=== PATIENT | female | born 1930 | race Caucasian/White ===

== ENCOUNTER 2019-09-10 10:01 | Inpatient (IN) | payer MEDICARE, OTHER ==
[~2019-09-10] VITALS: Ht 160 cm; Wt 50.0 kg
[2019-09-10] MEDS ORDERED: ESCI5SOL3 PO (10:23)
[2019-09-10] MEDS ORDERED: BIMA01SOL OU (10:23)
[2019-09-10] MEDS ORDERED: LOSA100T50 PO (10:23)
[2019-09-10] MEDS ORDERED: FURO20TA2 PO (10:23)
[2019-09-10] MEDS ORDERED: PROP60TA14 PO (10:23)
[2019-09-10] MEDS ORDERED: AZOP0.2S OU (10:23)
--- NOTE | 2019-09-10 11:48 | REP ---
Clinical: Trauma. Fall. Technique: AP, lateral, bilateral oblique views of the right hand. Findings: There is a transverse minimally displaced fracture through the fifth metacarpal shaft with overlying soft tissue swelling. Generalized age-related osteopenia and moderate osteoarthritic degenerative changes are noted. Impression: Transverse fracture through the fifth metacarpal shaft. Electronically Signed by Sha Leroy MD 09/10/2019 11:39 A
--- NOTE | 2019-09-10 11:51 | REP ---
Clinical: Trauma. Technique: Two views of the right hip. Findings: Nondisplaced fracture of the right superior pubic ramus and likely a nondisplaced fracture of the right inferior pubic ramus noted. Visualized portions of the right proximal femur are intact. Impression: Nondisplaced date pubic ramus fracture(s). Electronically Signed by Sha Leroy MD 09/10/2019 11:42 A
--- NOTE | 2019-09-10 11:53 | REP ---
Clinical: Trauma. Bruising. Technique: AP, lateral, bilateral oblique views of the right elbow. Findings: Age-related osteopenia and degenerative changes are appreciated. Findings include spurring and osteophyte formation along the proximal radius/ulna. Findings less likely represent acute fracture. No effusion. No significant swelling. Impression: Age-related osteopenia and degenerative changes. Bulky osteophyte in the region of the proximal anterior ulna presumed (less likely representing an acute fracture fragment. Electronically Signed by Sha Leroy MD 09/10/2019 11:44 A
[2019-09-10] MEDS ORDERED: PROP60CA PO (15:00)
[2019-09-10] MEDS ORDERED: LEXA5TAB13 PO (15:00)
--- NOTE | 2019-09-10 15:30 | REP ---
Clinical: Pain. Fall. Technique: Axial noncontrast images through the pelvis with coronal and sagittal re-formations. Findings: Nondisplaced fracture involving the right superior pubic ramus and inferior pubic ramus are identified with mild adjacent muscular contusion to the adductor musculature adjacent to the right inferior pubic ramus. No obvious significant hematoma. Remainder of the osseous structures demonstrate age-related osteopenia and degenerative changes without further obvious acute fracture. Intrapelvic structures appear intact. The bladder and age-appropriate uterus/adnexa noted. Diffuse colonic and sigmoid diverticulosis identified. No pelvic free fluid or hematoma. Impression: Nondisplaced fractures involving the right superior and inferior pubic rami with subtle intramuscular contusion involving the adductor musculature adjacent to the right inferior pubic ramus. Electronically Signed by Sha Leroy MD 09/10/2019 03:21 P
--- NOTE | 2019-09-10 16:05 | HPEPDOC ---
General Date of Admission 09/10/2019 Date of Service: Sep 10, 2019 Chief Complaint The patient is a 89-year-old female admitted with a reason for visit of Fall. Source: Patient, Old records Exam Limitations: Dementia Associated Symptoms: Denies Symptoms History of Present Illness Ms. Fitzpatrick is seen in [facility] ED following a fall x 8 days prior. She is a poor historian due to dementia and her caregivers have already left. Pt reported she was heading to the communal room at her apt complex when she 'must have turned too quickly', possibly slipped and fell. She denied any head trauma or loss of consciousness. She stated she was helped off the floor and managed to continue with her day. Pt stated she never felt pain and in fact, never even needed OTC medication for pain following her fall. She was noted to have some swelling over the R elbow and hand and appeared to be walking with a limp and was brought to the ED for assessment. Pt denied having any pain in the ED. Home Medications Scheduled Bimatoprost (Lumigan) 0.01% 2.5ML Drops, 1 DROP OU QHS, (Reported) Brinzolamide (Azopt) 1% 10ML Drops.susp, 1 DROP OU BID, (Reported) Escitalopram Oxalate (Lexapro) 5 Mg Tablet, 5 MG PO DAILY, (Reported) Furosemide (Furosemide) 20 Mg Tablet, 20 MG PO DAILY, (Reported) Losartan Potassium (Losartan Potassium) 100 Mg Tablet, 100 MG PO DAILY, (Reported) Propranolol HCl (Propranolol HCl ER) 60 Mg Cap.sa.24h, 60 MG PO QHS, (Reported) Allergies Coded Allergies: Aminoglycosides (Verified Allergy, Intermediate, RASH, 09/10/19) rash bacitracin (Verified Allergy, Intermediate, RASH, 09/10/19) neomycin (Verified Allergy, Intermediate, RASH, 09/10/19) polymyxin B (Verified Allergy, Intermediate, RASH, 09/10/19) Penicillins (Verified Adverse Reaction, Mild, GI UPSET, 09/10/19) clavulanic acid (Verified Adverse Reaction, Mild, GI UPSET, 09/10/19) Past Medical History Medical History HTN, Osteoporosis Cataract Surgical History Retinal re-attachment Family History Significant Family History: Noncontributory Social History * Smoker: Denies Alcohol: Denies Drugs: denies Psychosocial History: Anxiety A-FIB/CHADSVASC A-FIB History Current/History of A-Fib/PAF?: No Current PO Anticoag Therapy: No Review of Systems Constitutional: Denies: Chills, Fever, Night Sweats Eyes: Denies: Pain ENT: Denies: Head Aches Skin: Denies: Rash Pulmonary: Denies: Dyspnea, Cough Cardiovascular: Denies: Chest Pain, Palpitations, Orthopnea, Lt Headedness Gastrointestinal: Reports: Diarrhea; Denies: Nausea, Vomiting, Abdominal Pain Genitourinary: Denies: Dysuria Hematologic: Denies: Bruising Musculoskeletal: Denies: Neck Pain, Back Pain, Joint Pain, Muscle Pain, Spasms Neurological: Denies: Weakness, Numbness, Change in speech, Confusion Psych: Reports: Mood Normal; Denies: Depression, Memory Issues Physical Examination General Exam: Positive: Alert, Cooperative, No Acute Distress Eye Exam: Positive: Conjunctiva & lids normal ENT Exam: Positive: Atraumatic Neck Exam: Positive: Supple; Negative: thyromegaly Chest Exam: Positive: Clear to auscultation, Normal air movement Heart Exam: Positive: Rate Normal, Normal S1, Normal S2; Negative: Murmurs, Rubs Abdomen Exam: Positive: Normal bowel sounds, Soft; Negative: Tenderness, Hepatospenomegaly Extremity Exam: Positive: Other (arthritic changes b/l hands ); Negative: Clubbing, Cyanosis, Edema, Swelling Skin Exam: Negative: Nl turgor and temperature Neuro Exam: Positive: Normal Speech (AO to person and place ) Psych Exam: Positive: Mood NL, Anxiety Vital Signs Vital Signs Date Time Temp Pulse Resp B/P (MAP) Pulse Ox O2 Delivery O2 Flow Rate FiO2 09/10/19 12:05 96.3 64 18 187/86 (119) 99 Room Air Assessment/Plan Ms. Fitzpatrick is seen in [facility] ED following a fall x 8 days prior. She is a poor historian due to dementia and her caregivers have already left. Pt has a PMHx of HTN, Anxiety, Osteoporosis, Cataracts. Pt reported she was heading to the communal room at her apt complex when she 'must have turned too quickly', possibly slipped and fell. She denied any head trauma or loss of consciousness. She stated she was helped off the floor and managed to continue with her day. Pt stated she never felt pain and in fact, never took even OTC medication for pain following her fall. She was noted to have some swelling over the R elbow and hand and appeared to be walking with a limp and was brought to the ED for assessment. CT Pelvis w/out contrast Impression: "Nondisplaced fractures involving the right superior and inferior pubic rami with subtle intramuscular contusion involving the adductor musculature adjacent to the right inferior pubic ramus." X-Ray Right elbow Impression: "Age-related osteopenia and degenerative changes. Bulky osteophyte in the region of the proximal anterior ulna presumed (less likely representing an acute fracture fragment." X-Ray Right hand Impression: "Transverse fracture through the fifth metacarpal shaft." X-Ray Right hip Impression: "Nondisplaced date pubic ramus fracture(s)." 1. Non-displaced fracture right superior and inferior pubic rami 2. Transverse fracture through the fifth metacarpal shaft - Ortho consulted (Dr. Wilkins). Admission recommended with PT/OT assessment - consider ARU prior to d/c 3. HTN - continue home medications - pt denied missing any doses of her medications; reportedly has white coat HTN. 4. Cataracts - continue home medications 5. Anxiety - continue home medication Plan / VTE VTE Prophylaxis Ordered?: Yes Plan Diet: Continue Current Therapy: PT, OT THO PAUL PA-C Sep 10, 2019 16:05
[2019-09-10] MEDS ORDERED: ACETAMINOPHEN TAB 650MG DOSE (2X325MG) PO PRN (16:15)
[2019-09-10] MEDS ORDERED: traMADol 50 MG TAB PO PRN (18:15)
[2019-09-10] MEDS ORDERED: PILL CUTTER 1 EACH XX PRN (18:30)
[2019-09-10 20:28] LABS: BASO # 0.1 10^3/uL (0.0-0.2); BASO % 0.7 % (0.0-1.0); EOS # 0.1 10^3/uL (0.0-0.5); EOS % 1.2 % (0.0-3.0); HEMATOCRIT 31.3 % (36.0-47.0); HEMOGLOBIN 10.1 g/dl (12.0-15.5); LYMPH # 1.1 10^3/uL (1.5-5.0); LYMPH % 16.7 % (24.0-44.0); MEAN CORPUSCULAR HEMOGLOBIN 29.1 pg (27.0-33.0); MEAN CORPUSCULAR HGB CONC 32.3 g/dl (32.0-36.5); MEAN CORPUSCULAR VOLUME 90.2 fl (80.0-96.0); MONO # 0.6 10^3/uL (0.0-0.8); MONO % 9.5 % (0.0-5.0); NEUTROPHILS # 4.9 10^3/uL (1.5-8.5); NEUTROPHILS % 71.6 % (36.0-66.0); PLATELET COUNT, AUTOMATED 307 10^3/uL (150-450); RED BLOOD COUNT 3.47 10^6/uL (4.00-5.40); WHITE BLOOD COUNT 6.8 10^3/uL (4.0-10.0)
[2019-09-10 20:45] VITALS: BP 174/77
[2019-09-10 20:49] LABS: CREATININE FOR GFR 1.05 MG/DL (0.55-1.30); GLOMERULAR FILTRATION RATE 52.8 (>32)
[2019-09-10] MEDS: **hydrALAZINE HCL** 25 MG TAB PO SCH (21:03)
[2019-09-10] MEDS: BRINZOLAMIDE 1 % OPHTH SUSP (AZOPT) 10ML OU SCH (22:41)
[2019-09-10] MEDS: PROPRANOLOL 60 MG LA CAP PO SCH (22:41)
[2019-09-10] MEDS: ACETAMINOPHEN 500 MG TAB PO SCH (22:42)
[2019-09-11] MEDS: **hydrALAZINE HCL** 25 MG TAB PO SCH ×3 (06:00→21:28)
[2019-09-11 06:19] VITALS: BP 155/77
[2019-09-11 07:23] LABS: BASO # 0.1 10^3/uL (0.0-0.2); BASO % 1.1 % (0.0-1.0); EOS # 0.1 10^3/uL (0.0-0.5); EOS % 1.3 % (0.0-3.0); HEMATOCRIT 30.7 % (36.0-47.0); HEMOGLOBIN 10.3 g/dl (12.0-15.5); LYMPH # 0.9 10^3/uL (1.5-5.0); LYMPH % 16.8 % (24.0-44.0); MEAN CORPUSCULAR HEMOGLOBIN 29.9 pg (27.0-33.0); MEAN CORPUSCULAR HGB CONC 33.6 g/dl (32.0-36.5); MONO # 0.5 10^3/uL (0.0-0.8); NEUTROPHILS # 3.8 10^3/uL (1.5-8.5); NEUTROPHILS % 71.6 % (36.0-66.0); PLATELET COUNT, AUTOMATED 314 10^3/uL (150-450); RED BLOOD COUNT 3.45 10^6/uL (4.00-5.40); WHITE BLOOD COUNT 5.4 10^3/uL (4.0-10.0)
[2019-09-11 07:40] LABS: BLOOD UREA NITROGEN 21 MG/DL (7-18); CARBON DIOXIDE LEVEL 26 MEQ/L (21-32); CHLORIDE LEVEL 101 MEQ/L (98-107); CREATININE FOR GFR 0.91 MG/DL (0.55-1.30); GLOMERULAR FILTRATION RATE > 60.0 (>32); GLUCOSE, FASTING 104 MG/DL (70-100); POTASSIUM SERUM 3.9 MEQ/L (3.5-5.1); SODIUM LEVEL 136 MEQ/L (136-145)
[2019-09-11] MEDS: ENOXAPARIN 30 MG/0.3 ML SYR (J1650) SC SCH (09:37)
[2019-09-11] MEDS: LOSARTAN 50 MG TAB PO SCH (09:37)
[2019-09-11] MEDS: ESCITALOPRAM OXALATE 5MG TABLET (LEXAPRO) PO SCH (09:38)
[2019-09-11] MEDS: FUROSEMIDE 20 MG TAB PO SCH (09:39)
[2019-09-11] MEDS: ACETAMINOPHEN 500 MG TAB PO SCH ×2 (09:39→21:24)
[2019-09-11] MEDS: BRINZOLAMIDE 1 % OPHTH SUSP (AZOPT) 10ML OU SCH ×2 (09:39→21:25)
--- NOTE | 2019-09-11 10:35 | CR ---
DATE OF CONSULTATION: 09/11/2019 CHIEF COMPLAINT: Right pubic rami fracture and right fifth metacarpal fracture. HISTORY OF PRESENT ILLNESS: This 89-year-old female was seen today on the [facility]. Per the notes in the computer and the nursing staff on the [facility], it looks like Dr. Wilkins was made aware last evening of this patient. There is no note and as such I have gone ahead and assessed her myself. The patient is a poor historian. According to the notes from the physician wardrobe assistant (PERRY), Sheila Ureña, this woman had a fall eight days prior. She has dementia. Caregivers are not present at the time of that history nor when I saw her this morning at around 07:00 a.m. She had turned to quickly in her apartment complex, possibly slipped and fell. She denied chest pain, headache, shortness of breath or other symptoms. PAST MEDICAL HISTORY: Includes: Hypertension, osteoporosis, and cataracts. HOME MEDICATIONS: Include: Bimatoprost, brinzolamide, escitalopram oxalate, furosemide, losartan, propranolol. ALLERGIES: AMINOGLYCOSIDES, BACITRACIN, NEOMYCIN, POLYMYXIN, PENCILLIN, CLAVULANIC ACID. SOCIAL HISTORY: Denies smoking, alcohol or drug use. VITAL SIGNS: This morning, temperature 98.0, blood pressure 155/77, pulse rate 60, respiratory rate 18, 97% on room air. She is alert and converses somewhat appropriately but definitely has confusion. In terms of the right upper extremity, there is a splint immobilizing the wrist and metacarpals. I removed this. There is no obvious skin tear. There is mild bruising and swelling overlying the right fifth metacarpal, pain there but nowhere else in the fingers, hand or wrist. No crossing of or scissoring the digits. Normal sensation of the hand. The hand is warm and well-perfused. There is a strong radial pulse. No pain at the elbow. Elbow has full range of motion. No pain overlying the clavicles or entire left upper extremity or shoulders. Abdomen is soft. Pelvis has some mild pain to the right side but no obvious bruising or swelling. No pain to the long bone of the lower extremities. Feet are warm and well-perfused and with good pedal pulses. She is able to wiggle her toes, dorsiflex and plantar flex her feet. Radiographs reviewed, right elbow negative aside from chronic changes. Right hand x-rays were obtained. This shows a fifth metacarpal fracture. It appears well-aligned and minimally displaced. This is just proximal to the neck of the fifth metacarpal. It is a transverse fracture. CT scan the abdomen was reviewed. This shows a right superior and inferior pubic rami fracture. These were both minimally displaced. The femoral necks appear normal with no obvious fracture. No other abnormalities noted on the pelvic CT. Laboratory examination reveals a hemoglobin of 10.3. ASSESSMENT AND PLAN: For the fifth metacarpal fracture, we will treat that nonoperatively in a splint for three weeks, start immediate finger range of motion. Ideally, she will followup in the clinic to place more of a robust splint but for now, she is in appropriate splinted position. For the superior and inferior pubic rami fractures, this is weightbearing as tolerated. She should be mobilized as tolerated. From her medical management standpoint, she will be managed by the hospitalist team. From disposition, we will have Mara sue nurse practitioner aide in that aspect of her care. For venous thromboembolism (VTE) prophylaxis, she has been placed on Lovenox 30 mg subcutaneously once a day. I will follow her while she is in the hospital.
--- NOTE | 2019-09-11 11:37 | IPNPDOC ---
Subjective Date Seen The patient was seen on 09/11/19. Subjective Chief Complaint/HPI Ms. Fitzpatrick is seen in [facility] ED following a fall x 8 days prior. She is a poor historian due to apparent dementia. Pt reported she is doing fine this morning. She continues to deny pain. Reported that another doctor looked at her arm this morning, removed the bandages and thought she was doing fine. She was a little anxious last night and is again this morning - snow falling from the roof concerned her last night and this morning, she is anxious to receive her anxiolytic medication. Reported she previously took Propanolol Rx by her PCP but that was stopped years ago. Now takes a new medication, but cannot recall what it is; she knows this medication is effective for her. General: Reports: Normal Appetite; Denies: Chills, Night Sweats, Fatigue, Malaise Constitutional: Denies: Chills, Fever, Night Sweats Eyes: Denies: Pain ENT: Denies: Head Aches Skin: Denies: Rash Pulmonary: Denies: Dyspnea, Cough Cardiovascular: Denies: Chest Pain, Palpitations, Orthopnea, Lt Headedness Gastrointestinal: Denies: Abdominal Pain Genitourinary: Denies: Dysuria, Frequency Musculoskeletal: Denies: Neck Pain, Back Pain, Arm Pain, Hand Pain, Leg Pain, Foot Pain, Joint Pain, Muscle Pain, Spasms Neurological: Denies: Change in speech Psych: Reports: Anxiety Objective Physical Examination General Exam: Positive: Alert, Cooperative, No Acute Distress Eye Exam: Positive: Conjunctiva & lids normal ENT Exam: Positive: Atraumatic Neck Exam: Positive: Supple; Negative: thyromegaly Chest Exam: Positive: Clear to auscultation, Normal air movement Heart Exam: Positive: Rate Normal, Normal S1, Normal S2; Negative: Murmurs, Rubs Abdomen Exam: Positive: Normal bowel sounds, Soft; Negative: Tenderness, Hepatospenomegaly Extremity Exam: Positive: Other (arthritic changes b/l hands; kyphosis ); Negative: Clubbing, Cyanosis, Edema, Swelling Skin Exam: Negative: Nl turgor and temperature Neuro Exam: Positive: Normal Speech (AO to person and place ) Psych Exam: Positive: Anxiety Assessment /Plan Assessment Ms. Fitzpatrick is seen in [facility] ED following a fall x 8 days prior. She has a PMH of dementia, hypertension, anxiety. She is a poor historian due to dementia and her caregivers have already left. Pt reported she was heading to the communal room at her apt complex when she 'must have turned too quickly', possibly slipped and fell. She denied any head trauma or loss of consciousness. She stated she was helped off the floor and managed to continue with her day. Pt stated she never felt pain and in fact, never took even OTC medication for pain following her fall. She was noted to have some swelling over the R elbow and hand and appeared to be walking with a limp and was brought to the ED for assessment. CT Pelvis w/out contrast Impression: "Nondisplaced fractures involving the right superior and inferior pubic rami with subtle intramuscular contusion involving the adductor musculature adjacent to the right inferior pubic ramus." X-Ray Right elbow Impression: "Age-related osteopenia and degenerative changes. Bulky osteophyte in the region of the proximal anterior ulna presumed (less likely representing an acute fracture fragment." X-Ray Right hand Impression: "Transverse fracture through the fifth metacarpal shaft." X-Ray Right hip Impression: "Nondisplaced date pubic ramus fracture(s)." 1. Non-displaced fracture right superior and inferior pubic rami 2. Transverse fracture through the fifth metacarpal shaft - Ortho consulted. Admission recommended with PT/OT assessment - Seen by Dr. Rueda who will follow the pt while she is hospital - consider ARU prior to d/c - uses a walker at baseline - pain control with tylenol and tramadol prn if needed. 3. HTN - continue home medications - pt denied missing any doses of her medications; reportedly has white coat HTN. - on losartan and propranolol and lasix 4. Cataracts - continue home medications 5. Anxiety - continue home medications escitalopram 6. Dementia - watch for acute hospitalization induced delirium Plan/VTE VTE Prophylaxis Ordered?: Yes (Lovenox ) VS, I&O, 24H, Fishbone Vital Signs/I&O Vital Signs Date Time Temp Pulse Resp B/P (MAP) Pulse Ox O2 Delivery O2 Flow Rate FiO2 09/11/19 06:19 98.0 60 18 155/77 (103) 97 Room Air I&O- Last 24 Hours up to 6 AM 09/11/19 06:00 Intake Total 320 ml Output Total 0 ml Balance 320 ml Laboratory Data 24H LABS Laboratory Tests 2 09/10/19 20:09: Immature Granulocyte % (Auto) 0.3, Neutrophils (%) (Auto) 71.6H, Lymphocytes (%) (Auto) 16.7L, Monocytes (%) (Auto) 9.5H, Eosinophils (%) (Auto) 1.2, Basophils (%) (Auto) 0.7, Neutrophils # (Auto) 4.9, Lymphocytes # (Auto) 1.1L, Monocytes # (Auto) 0.6, Eosinophils # (Auto) 0.1, Basophils # (Auto) 0.1, Nucleated Red Blood Cells % (auto) 0.0, Anion Gap 12, Glomerular Filtration Rate 52.8, Calcium Level 9.0 09/11/19 06:49: Anion Gap 9, Glomerular Filtration Rate > 60.0, Calcium Level 9.0 09/11/19 06:50: Immature Granulocyte % (Auto) 0.2, Neutrophils (%) (Auto) 71.6H, Lymphocytes (%) (Auto) 16.8L, Monocytes (%) (Auto) 9.0H, Eosinophils (%) (Auto) 1.3, Basophils (%) (Auto) 1.1H, Neutrophils # (Auto) 3.8, Lymphocytes # (Auto) 0.9L, Monocytes # (Auto) 0.5, Eosinophils # (Auto) 0.1, Basophils # (Auto) 0.1, Nucleated Red Blood Cells % (auto) 0.0 CBC/BMP Laboratory Tests 09/10/19 20:09 09/11/19 06:49 09/11/19 06:50 THO PAUL PA-C Sep 11, 2019 11:37 JU PEÑA MD Sep 11, 2019 16:37
[2019-09-11 14:00] VITALS: BP 146/70
--- NOTE | 2019-09-11 15:11 | CR ---
DATE OF CONSULTATION: 09/10/2019 CHIEF COMPLAINT: Right hand and right pelvic pain. The patient presents today after having a fall about 8 days prior. She is a poor historian due to dementia and caregivers are not currently present at the time of the interview. She has reported some hand pain that is sharp in nature is about a 5 to 6/10 that is made worsen with lifting, gripping or pushing and alleviated only with rest, immobilization and pain medication. She also complains of right-sided pelvic pain that is made worse with ambulation and standing, improved by rest and pain medication. She reports that she fell at her apartment complex. Denies any other pain elsewhere. Denies any numbness, tingling, fevers, chills, nausea or vomiting or loss of consciousness. Complete 10 system review is significant for positives and negatives in the history of present illness. All other systems negative. HOME MEDICATIONS: - bimatoprost - brinzolamide - citalopram - furosemide - losartan - propranolol. ALLERGIES: AMINOGLYCOSIDES, BACITRACIN, NEOMYCIN, POLYMYXIN B, PENICILLIN, CLAVULANIC ACID. PAST MEDICAL HISTORY: 1. Hypertension. 2. Osteoporosis. 3. Cataracts. SOCIAL HISTORY: Denies smoking, alcohol and drugs. PHYSICAL EXAMINATION: The patient is awake and alert, well-dressed,, appropriate affect. Breathing unlabored on room air. Normocephalic, atraumatic. Bilateral upper extremities: No tenderness to palpation. Full active range of motion of the left shoulder, elbows and left wrist. Does have potential pinch nerve of the right hand with mild swelling. Skin intact. Radial pulses 2+, regular rate. Sensation intact to light touch to superficial sensory banch, radial nerve, median and ulnar nerve. Positive anterior interosseous nerve (AIN) and posterior interosseous nerve (PIN) and ulnar nerve function. Bilateral lower extremities: No tenderness to palpation about the knee, ankles or feet. No tenderness to palpation about the left hip. Tenderness to palpation of the right groin. Pain with right hip log roll, hip flexion, otherwise bilateral lower extremity positive EHL, patella, tibial and gastroc motor function, sural, saphenous, superficial, perineal, deep perineal. Sensation intact to light touch. Posterior tibial 2+, regular rate. Skin is intact. IMAGING: CT pelvis, x-rays of the right hand, elbow and hip reviewed demonstrating superior and inferior right-sided pubic rami fractures minimally displaced along with a minimally displaced right metacarpal neck fracture. DIAGNOSIS: 1. Right metacarpal neck fracture and right-sided superior and inferior pubic rami fracture. I discussed with the patient and emergency department (ED) providers who will relay to the medicine team that the patient can be weight bearing as tolerated for her pelvis. There is no indicated orthopedic intervention at this time. In regards to her right hand, we placed her into an ulnar gutter splint. She can weight bear through the splint if need be for ambulation. However, in order to decrease her pain with ambulation with the walker, I do recommend an elbow support for her walker and that way she can weight bear through to her elbow. Otherwise, she can followup in our office in approximately one to two weeks. No limitations otherwise. Appreciate medicine admission and care.
[2019-09-11] MEDS: PROPRANOLOL 60 MG LA CAP PO SCH (21:21)
[2019-09-11 22:00] VITALS: BP 148/71
[2019-09-12] MEDS: **hydrALAZINE HCL** 25 MG TAB PO SCH ×3 (05:12→21:23)
[2019-09-12 06:00] VITALS: BP 143/68
[2019-09-12 06:37] LABS: BASO # 0.1 10^3/uL (0.0-0.2); BASO % 0.7 % (0.0-1.0); EOS # 0.1 10^3/uL (0.0-0.5); HEMATOCRIT 32.1 % (36.0-47.0); HEMOGLOBIN 10.6 g/dl (12.0-15.5); LYMPH # 1.3 10^3/uL (1.5-5.0); LYMPH % 15.5 % (24.0-44.0); MEAN CORPUSCULAR HEMOGLOBIN 29.1 pg (27.0-33.0); MEAN CORPUSCULAR VOLUME 88.2 fl (80.0-96.0); MONO # 0.8 10^3/uL (0.0-0.8); MONO % 9.6 % (0.0-5.0); NEUTROPHILS % 72.8 % (36.0-66.0); PLATELET COUNT, AUTOMATED 356 10^3/uL (150-450); RED BLOOD COUNT 3.64 10^6/uL (4.00-5.40); WHITE BLOOD COUNT 8.2 10^3/uL (4.0-10.0)
[2019-09-12 06:52] LABS: CALCIUM LEVEL 9.1 MG/DL (8.8-10.2); CREATININE FOR GFR 1.08 MG/DL (0.55-1.30); GLOMERULAR FILTRATION RATE 51.1 (>32); POTASSIUM SERUM 4.2 MEQ/L (3.5-5.1)
[2019-09-12] MEDS: ESCITALOPRAM OXALATE 5MG TABLET (LEXAPRO) PO SCH (08:31)
[2019-09-12] MEDS: LOSARTAN 50 MG TAB PO SCH (08:32)
[2019-09-12] MEDS: FUROSEMIDE 20 MG TAB PO SCH (08:34)
[2019-09-12] MEDS: ENOXAPARIN 30 MG/0.3 ML SYR (J1650) SC SCH (08:34)
[2019-09-12] MEDS: ACETAMINOPHEN 500 MG TAB PO SCH ×2 (08:34→19:48)
[2019-09-12] MEDS: BRINZOLAMIDE 1 % OPHTH SUSP (AZOPT) 10ML OU SCH ×2 (08:36→19:48)
--- NOTE | 2019-09-12 10:33 | IPNPDOC ---
Subjective Date Seen The patient was seen on 09/12/19. Subjective Chief Complaint/HPI Ms. Fitzpatrick was admitted from the [facility] ED following a fall x 8 days prior. Pt reported she had no pain following her fall; however staff at the [facility] noticed her limping while walking. She was transported to the ED for assessment. She is a poor historian due to apparent dementia. She is very confused this morning and asking after family members who saying she hasn't seen them in a while. She continues to deny any pain in the right wrist, hips, low back or legs. General: Reports: Normal Appetite Constitutional: Denies: Chills, Fever Eyes: Denies: Pain ENT: Denies: Head Aches Pulmonary: Denies: Dyspnea, Cough Cardiovascular: Denies: Chest Pain, Palpitations, Lt Headedness Gastrointestinal: Denies: Abdominal Pain Musculoskeletal: Denies: Back Pain, Hand Pain, Leg Pain, Joint Pain, Muscle Pain Psych: Reports: Anxiety Objective Physical Examination General Exam: Positive: Alert, Cooperative, No Acute Distress Eye Exam: Positive: Conjunctiva & lids normal ENT Exam: Positive: Atraumatic Neck Exam: Positive: Supple; Negative: thyromegaly Chest Exam: Positive: Clear to auscultation, Normal air movement Heart Exam: Positive: Rate Normal, Normal S1, Normal S2; Negative: Murmurs, Rubs Abdomen Exam: Positive: Normal bowel sounds, Soft; Negative: Tenderness, Hepatospenomegaly Extremity Exam: Positive: Other (arthritic changes b/l hands; kyphosis ); Negative: Clubbing, Cyanosis, Edema, Swelling Skin Exam: Negative: Nl turgor and temperature Neuro Exam: Positive: Normal Speech Psych Exam: Positive: Anxiety, Oriented x 3 (disoriented to time and place ) Assessment /Plan Assessment Ms. Fitzpatrick is seen in [facility] ED following a fall x 8 days prior. She has a PMH of dementia, hypertension, anxiety. She is a poor historian due to dementia and her caregivers have already left. Pt reported she was heading to the communal room at her [facility] complex when she 'must have turned too quickly', possibly slipped and fell. She denied any head trauma or loss of consciousness. She stated she was helped off the floor and managed to continue with her day. Pt stated she never felt pain and in fact, never took even OTC medication for pain following her fall. She was noted to have some swelling over the R elbow and hand and appeared to be walking with a limp and was brought to the ED for assessment. CT Pelvis w/out contrast Impression: "Nondisplaced fractures involving the right superior and inferior pubic rami with subtle intramuscular contusion involving the adductor musculature adjacent to the right inferior pubic ramus." X-Ray Right elbow Impression: "Age-related osteopenia and degenerative changes. Bulky osteophyte in the region of the proximal anterior ulna presumed (less likely representing an acute fracture fragment." X-Ray Right hand Impression: "Transverse fracture through the fifth metacarpal shaft." X-Ray Right hip Impression: "Nondisplaced date pubic ramus fracture(s)." 1. Non-displaced fracture right superior and inferior pubic rami 2. Transverse fracture through the fifth metacarpal shaft - Ortho consulted. Admission recommended with PT/OT assessment - Seen by Dr. Rueda who will follow the pt while she is hospital - consider ARU prior to d/c - uses a walker at baseline - pain control with tylenol and tramadol prn if needed. 3. HTN - continue home medications - pt denied missing any doses of her medications; reportedly has white coat HTN. - on losartan and propranolol and lasix 4. Cataracts - continue home medications 5. Anxiety - continue Escitalopram. 6. Dementia - showing signs of increased confusion today. No aggression. Plan/VTE VTE Prophylaxis Ordered?: Yes (Lovenox ) VS, I&O, 24H, Fishbone Vital Signs/I&O Vital Signs Date Time Temp Pulse Resp B/P (MAP) Pulse Ox O2 Delivery O2 Flow Rate FiO2 09/12/19 08:32 140/72 09/12/19 06:00 98.0 72 18 99 Room Air I&O- Last 24 Hours up to 6 AM 09/12/19 06:00 Intake Total 1110 ml Balance 1110 ml Laboratory Data 24H LABS Laboratory Tests 2 09/12/19 05:53: Immature Granulocyte % (Auto) 0.4, Neutrophils (%) (Auto) 72.8H, Lymphocytes (%) (Auto) 15.5L, Monocytes (%) (Auto) 9.6H, Eosinophils (%) (Auto) 1.0, Basophils (%) (Auto) 0.7, Neutrophils # (Auto) 6.0, Lymphocytes # (Auto) 1.3L, Monocytes # (Auto) 0.8, Eosinophils # (Auto) 0.1, Basophils # (Auto) 0.1, Nucleated Red Blood Cells % (auto) 0.0, Anion Gap 9, Glomerular Filtration Rate 51.1, Calcium Level 9.1 CBC/BMP Laboratory Tests 09/12/19 05:53 THO PAUL PA-C Sep 12, 2019 10:33
[2019-09-12] MEDS: haloperidoL 1 MG TAB PO SCH ×2 (13:54→19:48)
[2019-09-12 14:00] VITALS: BP 151/63
[2019-09-12 19:45] VITALS: BP 148/66
[2019-09-12] MEDS: PROPRANOLOL 60 MG LA CAP PO SCH (19:48)
[2019-09-13 05:13] LABS: BASO # 0.1 10^3/uL (0.0-0.2); BASO % 0.9 % (0.0-1.0); EOS # 0.1 10^3/uL (0.0-0.5); EOS % 1.8 % (0.0-3.0); HEMATOCRIT 31.5 % (36.0-47.0); LYMPH # 1.2 10^3/uL (1.5-5.0); LYMPH % 17.8 % (24.0-44.0); MEAN CORPUSCULAR HEMOGLOBIN 28.9 pg (27.0-33.0); MEAN CORPUSCULAR HGB CONC 31.7 g/dl (32.0-36.5); MONO # 0.8 10^3/uL (0.0-0.8); MONO % 11.9 % (0.0-5.0); NEUTROPHILS # 4.5 10^3/uL (1.5-8.5); NEUTROPHILS % 67.3 % (36.0-66.0); PLATELET COUNT, AUTOMATED 308 10^3/uL (150-450); RED BLOOD COUNT 3.46 10^6/uL (4.00-5.40); WHITE BLOOD COUNT 6.6 10^3/uL (4.0-10.0)
[2019-09-13 05:34] LABS: CALCIUM LEVEL 8.6 MG/DL (8.8-10.2); CREATININE FOR GFR 0.94 MG/DL (0.55-1.30); POTASSIUM SERUM 3.9 MEQ/L (3.5-5.1)
[2019-09-13] MEDS: **hydrALAZINE HCL** 25 MG TAB PO SCH ×2 (06:00→13:41)
[2019-09-13 06:43] VITALS: BP 134/69
[2019-09-13] MEDS: ENOXAPARIN 30 MG/0.3 ML SYR (J1650) SC SCH (09:41)
[2019-09-13] MEDS: FUROSEMIDE 20 MG TAB PO SCH (09:42)
[2019-09-13] MEDS: ACETAMINOPHEN 500 MG TAB PO SCH (09:42)
[2019-09-13] MEDS: LOSARTAN 50 MG TAB PO SCH (09:42)
[2019-09-13] MEDS: ESCITALOPRAM OXALATE 5MG TABLET (LEXAPRO) PO SCH (09:42)
[2019-09-13] MEDS: BRINZOLAMIDE 1 % OPHTH SUSP (AZOPT) 10ML OU SCH (09:43)
[2019-09-13] MEDS: haloperidoL 1 MG TAB PO SCH (09:43)
[2019-09-13] MEDS ORDERED: TRAM50TA2 PO (10:06)
[2019-09-13] MEDS ORDERED: HALO1TA PO (10:06)
--- NOTE | 2019-09-13 10:08 | DS.PDOC ---
Discharge Summary General Date of Admission Sep 10, 2019 at 18:13 Date of Discharge 09/13/19 Discharge Summary PROCEDURES PERFORMED DURING STAY: [None]. ADMITTING DIAGNOSES: 1. Fall 2. Non-displaced fracture right superior and inferior pubic rami 3. Fracture, 5th metacarpal, right hand 4. HTN 5. Cataracts 6. Anxiety DISCHARGE DIAGNOSES: 1. Fall 2. Non-displaced fracture right superior and inferior pubic rami 3. Fracture, 5th metacarpal, right hand 4. HTN 5. Cataracts 6. Anxiety COMPLICATIONS/CHIEF COMPLAINT: Fx 5TH Metacarpal Right Hand,Fx Superior Pubic El[place]. HISTORY OF PRESENT ILLNESS: "Ms. Fitzpatrick is seen in [facility] ED following a fall x 8 days prior. She is a poor historian due to dementia and her caregivers have already left. Pt has a PMHx of HTN, Anxiety, Osteoporosis, Cataracts. Pt r eported she was heading to the communal room at her apt complex when she 'must have turned too quickly', possibly slipped and fell. She denied any head trauma or loss of consciousness. She stated she was helped off the floor and managed to continue with her day. Pt stated she never felt pain and in fact, never took even OTC medication for pain following her fall. She was noted to have some swelling over the R elbow and hand and appeared to be walking with a limp and was brought to the ED for assessment." HOSPITAL COURSE: Mrs. Emery had a pretty benign hospital course. She was admitted on 09/10/19 from [facility] ED after being diagnosed with Fx 5TH Metacarpal Right Hand,Fx Superior Pubic Rami. Orthopedics was consulted and the decision made to treat her fifth metacarpal fracture nonoperatively with a splint for 3 weeks and immediate finger ROM. For the superior and inferior pubic rami fractures, she was placed on weightbearing as tolerated. She is to follow-up outpatient with orthopedics once discharged. Patient was placed on Lovenox for VTE prophylaxis on admission. On 09/12 pt was noted to be responding to external stimuli. She was Rx Haldol 1mg BID per Dr. Guerrero. Symptoms resolved 09/13. Pt was transferred to ARU for PT and rehabilitation. Her son will reportedly be making arrangement for her to eventually be closer to him upon d/c. DISCHARGE MEDICATIONS: Please see below. ALLERGIES: Please see below. PHYSICAL EXAMINATION ON DISCHARGE: VITAL SIGNS: Please see below. General Exam: Positive: Alert, Cooperative, No Acute Distress Eye Exam: Positive: Conjunctiva & lids normal ENT Exam: Positive: Atraumatic Neck Exam: Positive: Supple; Negative: thyromegaly Chest Exam: Positive: Clear to auscultation, Normal air movement Heart Exam: Positive: Rate Normal, Normal S1, Normal S2; Negative: Murmurs, Rubs Abdomen Exam: Positive: Normal bowel sounds, Soft; Negative: Tenderness, Hepatospenomegaly Extremity Exam: Positive: Other (arthritic changes b/l hands ); Negative: Clubbing, Cyanosis, Edema, Swelling Skin Exam: Negative: Nl turgor and temperature Neuro Exam: Positive: Normal Speech (AO to person and place) Psych Exam: Positive: Mood NL, Anxiety (slight) LABORATORY DATA: Please see below. IMAGING: CT Pelvis w/out contrast Impression: "Nondisplaced fractures involving the right superior and inferior pubic rami with subtle intramuscular contusion involving the adductor musculature adjacent to the right inferior pubic ramus." X-Ray Right elbow Impression: "Age-related osteopenia and degenerative changes. Bulky osteophyte in the region of the proximal anterior ulna presumed (less likely representing an acute fracture fragment." X-Ray Right hand Impression: "Transverse fracture through the fifth metacarpal shaft." X-Ray Right hip Impression: "Nondisplaced date pubic ramus fracture(s)." ACTIVITY: [As tolerated]. DIET: Continue current DISCHARGE PLAN: Discharge to ARU DISPOSITION: Discharge to ARU DISCHARGE INSTRUCTIONS: 1. Management per Dr. Hartman ITEMS TO FOLLOWUP ON ON OUTPATIENT: N/A DISCHARGE CONDITION: [Stable]. TIME SPENT ON DISCHARGE: 32 minutes. Vital Signs/I&Os Vital Signs Date Time Temp Pulse Resp B/P (MAP) Pulse Ox O2 Delivery O2 Flow Rate FiO2 09/13/19 09:42 134/69 09/13/19 06:43 97.2 69 20 96 09/12/19 19:45 Room Air I&O- Last 24 Hours up to 6 AM 09/13/19 06:00 Intake Total 900 ml Output Total 775 ml Balance 125 ml Laboratory Data Labs 24H Laboratory Tests 2 09/13/19 04:46: Immature Granulocyte % (Auto) 0.3, Neutrophils (%) (Auto) 67.3H, Lymphocytes (%) (Auto) 17.8L, Monocytes (%) (Auto) 11.9H, Eosinophils (%) (Auto) 1.8, Basophils (%) (Auto) 0.9, Neutrophils # (Auto) 4.5, Lymphocytes # (Auto) 1.2L, Monocytes # (Auto) 0.8, Eosinophils # (Auto) 0.1, Basophils # (Auto) 0.1, Nucleated Red Blood Cells % (auto) 0.0, Anion Gap 8, Glomerular Filtration Rate 60.0, Calcium Level 8.6L CBC/BMP Laboratory Tests 09/13/19 04:46 Discharge Medications Scheduled Bimatoprost (Lumigan) 0.01% 2.5ML Drops, 1 DROP OU QHS, (Reported) Brinzolamide (Azopt) 1% 10ML Drops.susp, 1 DROP OU BID, (Reported) Escitalopram Oxalate (Lexapro) 5 Mg Tablet, 5 MG PO DAILY, (Reported) Furosemide (Furosemide) 20 Mg Tablet, 20 MG PO DAILY, (Reported) Haloperidol (Haloperidol) 1 Mg Tablet, 1 MG PO BID Losartan Potassium (Losartan Potassium) 100 Mg Tablet, 100 MG PO DAILY, (Reported) Propranolol HCl (Propranolol HCl ER) 60 Mg Cap.sa.24h, 60 MG PO QHS, (Reported) Scheduled PRN Tramadol HCl (Tramadol HCl) 50 Mg Tablet, 25 MG PO Q8HP PRN for PAIN LEVEL 6-10 Allergies Coded Allergies: Aminoglycosides (Verified Allergy, Intermediate, RASH, 09/10/19) rash bacitracin (Verified Allergy, Intermediate, RASH, 09/10/19) neomycin (Verified Allergy, Intermediate, RASH, 09/10/19) polymyxin B (Verified Allergy, Intermediate, RASH, 09/10/19) Penicillins (Verified Adverse Reaction, Mild, GI UPSET, 09/10/19) clavulanic acid (Verified Adverse Reaction, Mild, GI UPSET, 09/10/19) THO PAUL PA-C Sep 13, 2019 10:07
[2019-09-13 13:39] VITALS: BP 117/57
[2019-09-13 13:41] VITALS: BP 117/57
== END 2019-09-13 17:30 | DRG 536 ==
LOC: EDBD 10:01 → M ED 10:01 → M ED INP 18:13 → M MS5PR 20:25
PROVIDERS: ADMIT Internal Medicine Nephrology; ATTEND Internal Medicine Nephrology
DX: S32.511A Fracture of superior rim of right pubis, initial encounter for closed fracture (principal); S62.306A Unspecified fracture of fifth metacarpal bone, right hand, initial encounter for closed fracture; I10 Essential (primary) hypertension; F41.9 Anxiety disorder, unspecified; H26.9 Unspecified cataract; W18.30XA Fall on same level, unspecified, initial encounter; Y92.009 Unspecified place in unspecified non-institutional (private) residence as the place of occurrence of the external cause; F03.90 Unspecified dementia, unspecified severity, without behavioral disturbance, psychotic disturbance, mood disturbance, and anxiety; M81.0 Age-related osteoporosis without current pathological fracture; Z79.899 Other long term (current) drug therapy; Z88.8 Allergy status to other drugs, medicaments and biological substances; Z88.0 Allergy status to penicillin

== ENCOUNTER 2019-09-13 11:55 | Inpatient (IN) | payer MEDICARE, OTHER ==
[~2019-09-13] VITALS: Ht 157.5 cm; Wt 47.3 kg
[~2019-09-13 11:55] MED LIST: AZOP0.2S OU; BIMA01SOL OU; ESCI5SOL3 PO; FURO20TA2 PO; HALO1TA PO; LEXA5TAB13 PO; LOSA100T50 PO; PROP60CA PO; PROP60TA14 PO; TRAM50TA2 PO
[2019-09-13] MEDS ORDERED: traMADol 50 MG TAB PO PRN (17:30)
[2019-09-13] MEDS ORDERED: MOM 30ML SUSPENSION UDC PO PRN (17:30)
--- NOTE | 2019-09-13 17:43 | HPEPDOC ---
Dowel Pointer Note DATE OF ADMISSION: 09-13-19 DATE OF SERVICE: 09-13-19 TIME OF ADMISSION: Please refer to physician's admission order. SOURCE OF ADMISSION INFORMATION: [facility] record and patient CHIEF COMPLAINT: right pelvic and MCP fractures HISTORY OF PRESENT ILLNESS: 89F pm dementia, HTN, anxiety, cataracts who fell at home and presented to [facility] ED on 09-10-19 with right arm swelling and difficulty walking. Hip Xray showed, Nondisplaced fracture of the right superior pubic ramus and likely a nondisplaced fracture of the right inferior pubic ramus and hand X-ray revealed, Transverse fracture through the fifth metacarpal shaft. She was evaluated by orthopedics who splinted her right hand, making her NWB for 3 weeks. For her pelvic fracture no surgery was recommended and instead she was encouraged to walk on it WBAT. She was evaluated by therapy, noted to be well below her prior level of function in mobility and ADLs and deemed medically appropriate for discharge to ARU on 09-13-19. REVIEW OF SYSTEMS: The following is a completed review of systems and has been reviewed. Review of systems otherwise unremarkable. PAIN: Patient self reports right pelvic pain EYES: No recent vision changes EARS, NOSE, & THROAT: No throat pain, or dysphagia, or rhinorrhea CARDIOVASCULAR: Denies chest pain or palpitations PULMONARY: Denies shortness of breath GASTROINTESTINAL: Denies constipation/diarrhea GENITOURINARY: denies dysuria MUSCULOSKELETAL: right pelvic and MCP fractures NEUROLOGICAL:no focal tremor or paresthesias HEMATOLOGICAL: denies easy bruising SKIN: denies easy bruising PSYCHIATRIC: Unremarkable All other review of systems found to be negative. PAST MEDICAL HISTORY: as per HPI ALLERGIES: Please see below. MEDICATIONS: Please see below. SOCIAL HISTORY: no etoh/smoking/illicit drugs DIET: low sodium PHYSICAL EXAMINATION: VITAL SIGNS: Please see below. GENERAL: Pleasant and cooperative. No acute distress. thin HEENT: PERRL. Extraocular movements intact. Clear conjunctiva CARDIOVASCULAR: Regular rate and rhythm. No murmurs, rubs, or gallops LUNGS: Clear to auscultation bilaterally. No wheezes. No rhonchi ABDOMEN: Soft, nontender, nondistended. Positive bowel sounds. Normal active bowel sounds NEUROLOGICAL: Alert and oriented to self and place, Cranial nerves II through XII grossly intact. Sensation grossly intact in al 4 limbs EXTREMITIES: 5\5 strength LUE, 5/5 right elbow flexors and extensors, theatre manager >3/5 (limited due to splinting) 4\5 strength right hip flexion, knee extension, 5/5 ankle DF and EHL/PF (limited due to pain) SKIN: intact LABORATORY DATA: Please see below. IMAGING: Imaging documentation personally reviewed by record FUNCTIONAL STATUS: Premorbid: Modified Independent with mobility with RW, requiring assistance with some ADLs On Admission: Minimum assistance for bathing, upper body dressing, bed chair and wheelchair transfers, toilet transfers, ambulation. GOALS: Modified independent for bathing, upper body dressing, bed chair and wheelchair transfers, toilet transfers, ambulation, medical optimization, assess for DMEs ASSESSMENT:89-year-old F with past medical history of dementia who presents status post fall with right MCP fracture and pelvic fractures PLAN: 1. Rehab- PT- advance gait training, NW to RUE, ok to bear weight through elbow- fall recovery, dynamic balance training -OT- optimize ADl management with NWB to RUE 2. Neuro: hx of dementia- monitor for delirium -c/u haldol 3. Cardiac: hx of HTN c/u losartan, propranolol, and lasix- medicine consulted to assist in management 4. Resp: encourage incentive spirometry, monitor for infection 5. : monitor PVRs 6. GI ppx: protonix 7. DVT ppx: Lovenox and TEDs 8. Pain: tylenol and tramadol prn 9. Psych: anxiety- c/u lexapro 10. Dispo: TBD POST ADMISSION PHYSICIAN EVALUATION: Medical and functional status: Description of medical status, medical assessment: As above. Rehabilitation diagnosis and current and prior cold morbid medical conditions as above. Risk of complications and plans to mitigate them as above. Description of functional status current status is as above. Prior status as above. Status compared to preadmission: There are no clinically significant differences between the patient's current status and the information described on the preadmission screening document. Treatment plan anticipated: Treatment plan is as described above. Required disciplines including physical therapy, occupational therapy, others as noted above. Intensity of services: 3 hours a day, 6 days a week. Special considerations: There are no specific special or safety considerations that would likely preclude immediate implementation of an intensive rehabilitation program or subsequently influence the plan of care. ATTESTATION: Considering all the information above, it is my best judgment that this patient requires intensive rehabilitation therapy as described above and an inpatient hospital environment due to the complexity of nursing, medical, and rehabilitation needs required by the patient. Furthermore, this patient can reasonably be expected to participate in an benefit from an inpatient rehabilitation stay with an interdisciplinary team approach to the delivery of rehabilitation care under the direction and supervision of rehabilitation physician. PROGNOSIS: Good ESTIMATED LENGTH OF STAY:18-21 days. PROJECTED DISCHARGE DESTINATION: Home with family support and any durable medical equipment required to increase functional safety and mobility. TIME SPENT COUNSELING AND COORDINATING INITIAL CARE: Greater than 70 minutes. Vital Signs Vital Signs Date Time Temp Pulse Resp B/P (MAP) Pulse Ox O2 Delivery O2 Flow Rate FiO2 09/13/19 17:57 98.7 64 17 136/63 (87) 96 09/13/19 20:00 Room Air Home Medications Scheduled Bimatoprost (Lumigan) 0.01% 2.5ML Drops, 1 DROP OU QHS, (Reported) Brinzolamide (Azopt) 1% 10ML Drops.susp, 1 DROP OU BID, (Reported) Escitalopram Oxalate (Lexapro) 5 Mg Tablet, 5 MG PO DAILY, (Reported) Furosemide (Furosemide) 20 Mg Tablet, 20 MG PO DAILY, (Reported) Haloperidol (Haloperidol) 1 Mg Tablet, 1 MG PO BID Losartan Potassium (Losartan Potassium) 100 Mg Tablet, 100 MG PO DAILY, (Reported) Propranolol HCl (Propranolol HCl ER) 60 Mg Cap.sa.24h, 60 MG PO QHS, (Reported) Scheduled PRN Tramadol HCl (Tramadol HCl) 50 Mg Tablet, 25 MG PO Q8HP PRN for PAIN LEVEL 6-10 Allergies Coded Allergies: Aminoglycosides (Verified Allergy, Intermediate, RASH, 09/10/19) rash bacitracin (Verified Allergy, Intermediate, RASH, 09/10/19) neomycin (Verified Allergy, Intermediate, RASH, 09/10/19) polymyxin B (Verified Allergy, Intermediate, RASH, 09/10/19) Penicillins (Verified Adverse Reaction, Mild, GI UPSET, 09/10/19) clavulanic acid (Verified Adverse Reaction, Mild, GI UPSET, 09/10/19) A-FIB/CHADSVASC A-FIB History Current/History of A-Fib/PAF?: No MIRIAN GREENFIELD MD Sep 13, 2019 17:43
[2019-09-13 17:57] VITALS: BP 136/63
[2019-09-13] MEDS ORDERED: PILL CUTTER 1 EACH XX PRN (18:00)
[2019-09-13 20:00] VITALS: BP 144/63
[2019-09-13] MEDS: haloperidoL 1 MG TAB PO SCH (21:34)
[2019-09-13] MEDS: SENNA 8.6 MG TAB (SENOKOT) PO SCH (21:34)
[2019-09-13] MEDS: DOCUSATE SODIUM 100 MG CAP PO SCH (21:35)
[2019-09-13] MEDS: PROPRANOLOL 60 MG LA CAP PO SCH (21:35)
[2019-09-13] MEDS: ACETAMINOPHEN 500 MG TAB PO SCH (21:35)
[2019-09-13] MEDS: BRINZOLAMIDE 1 % OPHTH SUSP (AZOPT) 10ML OU SCH (21:35)
[2019-09-14 06:31] VITALS: BP 118/67
[2019-09-14 07:30] LABS: BASO # 0.1 10^3/uL (0.0-0.2); EOS # 0.2 10^3/uL (0.0-0.5); EOS % 2.7 % (0.0-3.0); HEMATOCRIT 33.9 % (36.0-47.0); HEMOGLOBIN 10.6 g/dl (12.0-15.5); LYMPH # 1.4 10^3/uL (1.5-5.0); LYMPH % 22.5 % (24.0-44.0); MEAN CORPUSCULAR HEMOGLOBIN 28.7 pg (27.0-33.0); MEAN CORPUSCULAR HGB CONC 31.3 g/dl (32.0-36.5); MEAN CORPUSCULAR VOLUME 91.9 fl (80.0-96.0); MONO # 0.6 10^3/uL (0.0-0.8); MONO % 9.2 % (0.0-5.0); NEUTROPHILS # 4.1 10^3/uL (1.5-8.5); NEUTROPHILS % 64.4 % (36.0-66.0); PLATELET COUNT, AUTOMATED 355 10^3/uL (150-450); RED BLOOD COUNT 3.69 10^6/uL (4.00-5.40); WHITE BLOOD COUNT 6.3 10^3/uL (4.0-10.0)
[2019-09-14 07:54] LABS: ALBUMIN 3.1 GM/DL (3.2-5.2); BILIRUBIN,TOTAL 0.3 MG/DL (0.2-1.0); CALCIUM LEVEL 8.6 MG/DL (8.8-10.2); CREATININE FOR GFR 1.17 MG/DL (0.55-1.30); GLOMERULAR FILTRATION RATE 46.6 (>32); POTASSIUM SERUM 4.4 MEQ/L (3.5-5.1); TOTAL PROTEIN 6.7 GM/DL (6.4-8.2)
[2019-09-14] MEDS: DOCUSATE SODIUM 100 MG CAP PO SCH ×2 (08:21→20:08)
[2019-09-14] MEDS: PANTOPRAZOLE 40MG TAB (PROTONIX) PO SCH (08:22)
[2019-09-14] MEDS: ACETAMINOPHEN 500 MG TAB PO SCH ×3 (08:22→20:09)
[2019-09-14] MEDS: ENOXAPARIN 30 MG/0.3 ML SYR (J1650) SC SCH (08:22)
[2019-09-14] MEDS: haloperidoL 1 MG TAB PO SCH ×2 (08:22→20:08)
[2019-09-14] MEDS: BRINZOLAMIDE 1 % OPHTH SUSP (AZOPT) 10ML OU SCH ×2 (08:23→20:09)
[2019-09-14] MEDS: FUROSEMIDE 20 MG TAB PO SCH (08:23)
[2019-09-14] MEDS: ESCITALOPRAM OXALATE 5MG TABLET (LEXAPRO) PO SCH (08:23)
[2019-09-14] MEDS: LOSARTAN 50 MG TAB PO SCH (08:23)
--- NOTE | 2019-09-14 10:44 | CR.PDOC ---
General Date of Consultation: Sep 14, 2019 Referring Provider: MIRIAN GREENFIELD MD Consultation REASON FOR CONSULTATION/CHIEF COMPLAINT: Fall, Fx 5TH Metacarpal Right Hand,Fx Right Superior and inferior Pubic Rami HISTORY OF PRESENT ILLNESS: "Ms. Fitzpatrick is seen in [facility] ED following a fall x 8 days prior. She is a poor historian due to dementia and her caregivers have already left. Pt has a PMHx of HTN, Anxiety, Osteoporosis, Cataracts. Pt reported she was heading to the communal room at her apt complex when she 'must have turned too quickly', possibly slipped and fell. She denied any head trauma or loss of consciousness. She stated she was helped off the floor and managed to continue with her day. Pt stated she never felt pain and in fact, never took even OTC medication for pain following her fall. She was noted to have some swelling over the R elbow and hand and appeared to be walking with a limp and was brought to the ED for assessment." ALLERGIES: Please see below. HOME MEDICATIONS: Please see below. PAST MEDICAL HISTORY: HTN Anxiety Osteoporosis Cataracts PAST SURGICAL HISTORY: 1. Retinal re-attachment FAMILY HISTORY: Noncontributory SOCIAL HISTORY: Smoker: Denies Alcohol: Denies Drugs: denies Psychosocial History: Anxiety REVIEW OF SYSTEMS: Constitutional: Denies: Chills, Fever, Night Sweats Eyes: Denies: Pain ENT: Denies: Head Aches Skin: Denies: Rash Pulmonary: Denies: Dyspnea, Cough Cardiovascular: Denies: Chest Pain, Palpitations, Orthopnea, Lt Headedness Gastrointestinal: Reports: Diarrhea; Denies: Nausea, Vomiting, Abdominal Pain Genitourinary: Denies: Dysuria Hematologic: Denies: Bruising Musculoskeletal: Denies: Neck Pain, Back Pain, Joint Pain, Muscle Pain, Spasms Neurological: Denies: Weakness, Numbness, Change in speech, Confusion Psych: Reports: Mood Normal; Denies: Depression, Memory Issues PHYSICAL EXAMINATION: VITAL SIGNS: Please see below. General Exam: Positive: Alert, Cooperative, No Acute Distress Eye Exam: Positive: Conjunctiva & lids normal ENT Exam: Positive: Atraumatic Neck Exam: Positive: Supple; Negative: thyromegaly Chest Exam: Positive: Clear to auscultation, Normal air movement Heart Exam: Positive: Rate Normal, Normal S1, Normal S2; Negative: Murmurs, Rubs Abdomen Exam: Positive: Normal bowel sounds, Soft; Negative: Tenderness, Hepatospenomegaly Extremity Exam: Positive: Other (arthritic changes b/l hands ); Negative: Clubbing, Cyanosis, Edema, Swelling Skin Exam: Negative: Nl turgor and temperature Neuro Exam: Positive: Normal Speech (AO to person and place ) Psych Exam: Positive: Mood NL, Anxiety LABORATORY DATA: Please see below. ASSESSMENT/PLAN: Ms. Fitzpatrick is seen in [facility] ED following a fall x 8 days prior. She is a poor historian due to dementia and her caregivers have already left. Pt has a PMHx of HTN, Anxiety, Osteoporosis, Cataracts. Pt reported she was heading to the communal room at her apt complex when she 'must have turned too quickly', possibly slipped and fell. She denied any head trauma or loss of consciousness. She stated she was helped off the floor and managed to continue with her day. Pt stated she never felt pain and in fact, never took even OTC medication for pain following her fall. She was noted to have some swelling over the R elbow and hand and appeared to be walking with a limp and was brought to the ED for as sessment. CT Pelvis w/out contrast Impression: "Nondisplaced fractures involving the right superior and inferior pubic rami with subtle intramuscular contusion involving the adductor musculature adjacent to the right inferior pubic ramus." X-Ray Right elbow Impression: "Age-related osteopenia and degenerative changes. Bulky osteophyte in the region of the proximal anterior ulna presumed (less likely representing an acute fracture fragment." X-Ray Right hand Impression: "Transverse fracture through the fifth metacarpal shaft." X-Ray Right hip Impression: "Nondisplaced date pubic ramus fracture(s)." 1. Non-displaced fracture right superior and inferior pubic rami 2. Transverse fracture through the fifth metacarpal shaft - Ortho consulted (Dr. Wilkins). Admission recommended with PT/OT assessment - admitted to ARU; continued management per Dr. Hartman 3. HTN - continue home medications - reports she has white coat HTN. 4. Cataracts - continue home medications 5. Anxiety - continue home medication Vital Signs/I&O Vital Signs Date Time Temp Pulse Resp B/P (MAP) Pulse Ox O2 Delivery O2 Flow Rate FiO2 09/14/19 08:23 118/67 09/14/19 06:31 98.1 70 16 98 Room Air I&O- Last 24 Hours up to 6 AM 09/14/19 06:00 Intake Total 360 ml Balance 360 ml Laboratory Data Labs 24H Laboratory Tests 2 09/14/19 06:00: Immature Granulocyte % (Auto) 0.2, Neutrophils (%) (Auto) 64.4, Lymphocytes (%) (Auto) 22.5L, Monocytes (%) (Auto) 9.2H, Eosinophils (%) (Auto) 2.7, Basophils (%) (Auto) 1.0, Neutrophils # (Auto) 4.1, Lymphocytes # (Auto) 1.4L, Monocytes # (Auto) 0.6, Eosinophils # (Auto) 0.2, Basophils # (Auto) 0.1, Nucleated Red Blood Cells % (auto) 0.0, Anion Gap 7L, Glomerular Filtration Rate 46.6, Calcium Level 8.6L, Total Bilirubin 0.3, Aspartate Amino Transf (AST/SGOT) 16, Alanine Aminotransferase (ALT/SGPT) 13, Alkaline Phosphatase 90, Total Protein 6.7, Albumin 3.1L, Albumin/Globulin Ratio 0.86L CBC/BMP Laboratory Tests 09/14/19 06:00 Allergies Coded Allergies: Aminoglycosides (Verified Allergy, Intermediate, RASH, 09/10/19) rash bacitracin (Verified Allergy, Intermediate, RASH, 09/10/19) neomycin (Verified Allergy, Intermediate, RASH, 09/10/19) polymyxin B (Verified Allergy, Intermediate, RASH, 09/10/19) Penicillins (Verified Adverse Reaction, Mild, GI UPSET, 09/10/19) clavulanic acid (Verified Adverse Reaction, Mild, GI UPSET, 09/10/19) Home Medications Scheduled Bimatoprost (Lumigan) 0.01% 2.5ML Drops, 1 DROP OU QHS, (Reported) Brinzolamide (Azopt) 1% 10ML Drops.susp, 1 DROP OU BID, (Reported) Escitalopram Oxalate (Lexapro) 5 Mg Tablet, 5 MG PO DAILY, (Reported) Furosemide (Furosemide) 20 Mg Tablet, 20 MG PO DAILY, (Reported) Haloperidol (Haloperidol) 1 Mg Tablet, 1 MG PO BID for 30 Days, #60 Losartan Potassium (Losartan Potassium) 100 Mg Tablet, 100 MG PO DAILY, (Reported) Propranolol HCl (Propranolol HCl ER) 60 Mg Cap.sa.24h, 60 MG PO QHS, (Reported) Scheduled PRN Tramadol HCl (Tramadol HCl) 50 Mg Tablet, 25 MG PO Q8HP PRN for PAIN LEVEL 6-10 for 5 Days, #15 Attending Note I have personally performed a face to face diagnostic evaluation on this patient. I have reviewed and agree with the care plan documented above. THO PAUL PA-C Sep 14, 2019 10:44 JU PEÑA MD Sep 19, 2019 12:10
--- NOTE | 2019-09-14 12:25 | IPNPDOC ---
PM&R Progress Note DATE OF SERVICE: Sep 14, 2019 Paratransit Operator Progress Note Subjective: Patient reporting she slept well last night, but is having trouble getting to the bathroom on time while taking lasix. REVIEW OF SYSTEMS: The following is a completed review of systems and has been reviewed. Review of systems otherwise unremarkable. PAIN: Patient self reports right pelvic pain EYES: No recent vision changes EARS, NOSE, & THROAT: No throat pain, or dysphagia, or rhinorrhea CARDIOVASCULAR: Denies chest pain or palpitations PULMONARY: Denies shortness of breath GASTROINTESTINAL: Denies constipation/diarrhea GENITOURINARY: denies dysuria MUSCULOSKELETAL: right pelvic and MCP fractures NEUROLOGICAL:no focal tremor or paresthesias HEMATOLOGICAL: denies easy bruising SKIN: denies easy bruising PSYCHIATRIC: Unremarkable All other review of systems found to be negative. PHYSICAL EXAMINATION: VITAL SIGNS: Please see below. GENERAL: Pleasant and cooperative. No acute distress. thin HEENT: PERRL. Extraocular movements intact. Clear conjunctiva CARDIOVASCULAR: Regular rate and rhythm. No murmurs, rubs, or gallops LUNGS: Clear to auscultation bilaterally. No wheezes. No rhonchi ABDOMEN: Soft, nontender, nondistended. Positive bowel sounds. Normal active bowel sounds NEUROLOGICAL: Alert and oriented to self and place, Cranial nerves II through XII grossly intact. Sensation grossly intact in al 4 limbs EXTREMITIES: 5\5 strength LUE, 5/5 right elbow flexors and extensors, greenskeeper >3/5 (limited due to splinting) 4\5 strength right hip flexion, knee extension, 5/5 ankle DF and EHL/PF (limited due to pain) SKIN: intact ASSESSMENT:89-year-old F with past medical history of dementia who presents status post fall with right MCP fracture and pelvic fractures PLAN: 1. Rehab- PT- advance gait training, NW to RUE, ok to bear weight through elbow- fall recovery, dynamic balance training -OT- optimize ADl management with NWB to RUE 2. Neuro: hx of dementia- monitor for delirium -c/u haldol 3. Cardiac: hx of HTN c/u losartan, propranolol, and lasix- medicine consulted to assist in management 4. Resp: encourage incentive spirometry, monitor for infection 5. : monitor PVRs 6. GI ppx: protonix 7. DVT ppx: Lovenox and TEDs 8. Pain: tylenol and tramadol prn 9. Psych: anxiety- c/u lexapro 10. Dispo: TBD Allergies Coded Allergies: Aminoglycosides (Verified Allergy, Intermediate, RASH, 09/10/19) rash bacitracin (Verified Allergy, Intermediate, RASH, 09/10/19) neomycin (Verified Allergy, Intermediate, RASH, 09/10/19) polymyxin B (Verified Allergy, Intermediate, RASH, 09/10/19) Penicillins (Verified Adverse Reaction, Mild, GI UPSET, 09/10/19) clavulanic acid (Verified Adverse Reaction, Mild, GI UPSET, 09/10/19) Vital Signs Vital Signs Date Time Temp Pulse Resp B/P (MAP) Pulse Ox O2 Delivery O2 Flow Rate FiO2 09/14/19 08:23 118/67 09/14/19 06:31 98.1 70 16 98 Room Air Laboratory Data CBC/BMP Laboratory Tests 09/14/19 06:00 Labs 24H Laboratory Tests 2 09/14/19 06:00: Immature Granulocyte % (Auto) 0.2, Neutrophils (%) (Auto) 64.4, Lymphocytes (%) (Auto) 22.5L, Monocytes (%) (Auto) 9.2H, Eosinophils (%) (Auto) 2.7, Basophils (%) (Auto) 1.0, Neutrophils # (Auto) 4.1, Lymphocytes # (Auto) 1.4L, Monocytes # (Auto) 0.6, Eosinophils # (Auto) 0.2, Basophils # (Auto) 0.1, Nucleated Red Blood Cells % (auto) 0.0, Anion Gap 7L, Glomerular Filtration Rate 46.6, Calcium Level 8.6L, Total Bilirubin 0.3, Aspartate Amino Transf (AST/SGOT) 16, Alanine Aminotransferase (ALT/SGPT) 13, Alkaline Phosphatase 90, Total Protein 6.7, Albumin 3.1L, Albumin/Globulin Ratio 0.86L Current Medications Current Medications Current Medications Medications (Trade) Dose Ordered Sig/Jenniffer Route PRN Reason Start Time Stop Time Status Last Admin Dose Admin Acetaminophen (Tylenol Tab) 1,000 mg TID PO 09/13/19 21:00 09/14/19 08:22 Brinzolamide (Azopt) 1 drop BID OU 09/13/19 21:00 09/14/19 08:23 Docusate Sodium (Colace) 100 mg BID PO 09/13/19 21:00 09/14/19 08:21 Enoxaparin Sodium (Lovenox) 30 mg DAILY SC 09/14/19 09:00 09/14/19 08:22 Escitalopram Oxalate (Lexapro) 5 mg DAILY PO 09/14/19 09:00 09/14/19 08:23 Furosemide (Lasix) 20 mg DAILY PO 09/14/19 09:00 09/14/19 08:23 Haloperidol (Haldol) 1 mg BID PO 09/13/19 21:00 09/14/19 08:22 Losartan Potassium (Cozaar) 100 mg DAILY PO 09/14/19 09:00 09/14/19 08:23 Magnesium Hydroxide (Milk Of Magnesia) 30 ml DAILYPRN PRN PO CONSTIPATION 09/13/19 17:30 Pantoprazole Sodium (Protonix) 40 mg DAILY PO 09/14/19 09:00 09/14/19 08:22 Propranolol HCl (Inderal La) 60 mg QHS PO 09/13/19 21:00 09/13/19 21:35 Senna (Senokot) 1 tab QHS PO 09/13/19 21:00 09/13/19 21:34 Tramadol HCl (Ultram) 25 mg Q4HP PRN PO MODERATE PAIN (PS 5-7) 09/13/19 17:30 MIRIAN GREENFIELD MD Sep 14, 2019 12:25
[2019-09-14 14:00] VITALS: BP 132/73
[2019-09-14 20:00] VITALS: BP 136/63
[2019-09-14] MEDS: SENNA 8.6 MG TAB (SENOKOT) PO SCH (20:07)
[2019-09-14] MEDS: PROPRANOLOL 60 MG LA CAP PO SCH (20:08)
[2019-09-15 06:00] VITALS: BP 111/57
[2019-09-15] MEDS: ACETAMINOPHEN 500 MG TAB PO SCH ×3 (09:00→21:18)
[2019-09-15 14:00] VITALS: BP 134/63
[2019-09-15] MEDS: PANTOPRAZOLE 40MG TAB (PROTONIX) PO SCH (14:12)
[2019-09-15] MEDS: DOCUSATE SODIUM 100 MG CAP PO SCH ×2 (14:12→21:17)
[2019-09-15] MEDS: LOSARTAN 50 MG TAB PO SCH (14:13)
[2019-09-15] MEDS: FUROSEMIDE 20 MG TAB PO SCH (14:13)
[2019-09-15] MEDS: ENOXAPARIN 30 MG/0.3 ML SYR (J1650) SC SCH (14:13)
[2019-09-15] MEDS: haloperidoL 1 MG TAB PO SCH ×2 (14:14→21:17)
[2019-09-15] MEDS: ESCITALOPRAM OXALATE 5MG TABLET (LEXAPRO) PO SCH (14:14)
[2019-09-15] MEDS: BRINZOLAMIDE 1 % OPHTH SUSP (AZOPT) 10ML OU SCH ×2 (14:14→21:17)
[2019-09-15 21:00] VITALS: BP 119/54
[2019-09-15] MEDS: SENNA 8.6 MG TAB (SENOKOT) PO SCH (21:17)
[2019-09-15] MEDS: PROPRANOLOL 60 MG LA CAP PO SCH (21:17)
[2019-09-16 06:00] VITALS: BP 114/61
[2019-09-16 07:00] LABS: HEMATOCRIT 33.3 % (36.0-47.0); HEMOGLOBIN 10.7 g/dl (12.0-15.5); MEAN CORPUSCULAR HEMOGLOBIN 29.5 pg (27.0-33.0); MEAN CORPUSCULAR HGB CONC 32.1 g/dl (32.0-36.5); MEAN CORPUSCULAR VOLUME 91.7 fl (80.0-96.0); PLATELET COUNT, AUTOMATED 368 10^3/uL (150-450); RED BLOOD COUNT 3.63 10^6/uL (4.00-5.40); WHITE BLOOD COUNT 6.5 10^3/uL (4.0-10.0)
[2019-09-16 07:13] LABS: CALCIUM LEVEL 8.8 MG/DL (8.8-10.2); CREATININE FOR GFR 1.13 MG/DL (0.55-1.30); GLOMERULAR FILTRATION RATE 48.5 (>32); POTASSIUM SERUM 4.5 MEQ/L (3.5-5.1)
[2019-09-16] MEDS: PANTOPRAZOLE 40MG TAB (PROTONIX) PO SCH (09:15)
[2019-09-16] MEDS: DOCUSATE SODIUM 100 MG CAP PO SCH ×2 (09:15→21:07)
[2019-09-16] MEDS: ENOXAPARIN 30 MG/0.3 ML SYR (J1650) SC SCH (09:15)
[2019-09-16] MEDS: haloperidoL 1 MG TAB PO SCH ×2 (09:15→21:07)
[2019-09-16] MEDS: FUROSEMIDE 20 MG TAB PO SCH (09:15)
[2019-09-16] MEDS: ESCITALOPRAM OXALATE 5MG TABLET (LEXAPRO) PO SCH (09:15)
[2019-09-16] MEDS: BRINZOLAMIDE 1 % OPHTH SUSP (AZOPT) 10ML OU SCH ×2 (09:16→21:09)
[2019-09-16] MEDS: ACETAMINOPHEN 500 MG TAB PO SCH ×3 (09:16→21:08)
[2019-09-16] MEDS: LOSARTAN 50 MG TAB PO SCH (09:16)
[2019-09-16 14:00] VITALS: BP 119/56
[2019-09-16 20:00] VITALS: BP 134/63
[2019-09-16] MEDS: SENNA 8.6 MG TAB (SENOKOT) PO SCH (21:07)
[2019-09-16] MEDS: PROPRANOLOL 60 MG LA CAP PO SCH (21:09)
[2019-09-17 06:00] VITALS: BP 141/65
[2019-09-17] MEDS: ACETAMINOPHEN 500 MG TAB PO SCH ×3 (08:41→20:29)
[2019-09-17] MEDS: PANTOPRAZOLE 40MG TAB (PROTONIX) PO SCH (08:41)
[2019-09-17] MEDS: FUROSEMIDE 20 MG TAB PO SCH (08:42)
[2019-09-17] MEDS: DOCUSATE SODIUM 100 MG CAP PO SCH ×2 (08:42→20:29)
[2019-09-17] MEDS: haloperidoL 1 MG TAB PO SCH ×2 (08:42→20:28)
[2019-09-17] MEDS: LOSARTAN 50 MG TAB PO SCH (08:42)
[2019-09-17] MEDS: ESCITALOPRAM OXALATE 5MG TABLET (LEXAPRO) PO SCH (08:42)
[2019-09-17] MEDS: ENOXAPARIN 30 MG/0.3 ML SYR (J1650) SC SCH (08:42)
[2019-09-17] MEDS: BRINZOLAMIDE 1 % OPHTH SUSP (AZOPT) 10ML OU SCH ×2 (08:43→20:29)
[2019-09-17 14:00] VITALS: BP 116/58
[2019-09-17 20:00] VITALS: BP 111/54
[2019-09-17] MEDS: PROPRANOLOL 60 MG LA CAP PO SCH (20:29)
[2019-09-17] MEDS: SENNA 8.6 MG TAB (SENOKOT) PO SCH (20:29)
[2019-09-18 05:38] VITALS: BP 132/60
[2019-09-18] MEDS: LOSARTAN 50 MG TAB PO SCH (08:28)
[2019-09-18] MEDS: PANTOPRAZOLE 40MG TAB (PROTONIX) PO SCH (08:28)
[2019-09-18] MEDS: FUROSEMIDE 20 MG TAB PO SCH (08:28)
[2019-09-18] MEDS: ENOXAPARIN 30 MG/0.3 ML SYR (J1650) SC SCH (08:28)
[2019-09-18] MEDS: DOCUSATE SODIUM 100 MG CAP PO SCH ×2 (08:28→20:36)
[2019-09-18] MEDS: ACETAMINOPHEN 500 MG TAB PO SCH ×3 (08:29→20:36)
[2019-09-18] MEDS: BRINZOLAMIDE 1 % OPHTH SUSP (AZOPT) 10ML OU SCH ×2 (08:29→20:35)
[2019-09-18] MEDS: haloperidoL 1 MG TAB PO SCH ×2 (08:29→20:36)
[2019-09-18] MEDS: ESCITALOPRAM OXALATE 5MG TABLET (LEXAPRO) PO SCH (08:29)
[2019-09-18 14:00] VITALS: BP 126/62
--- NOTE | 2019-09-18 15:00 | IPNPDOC ---
Text Note Date of Service The patient was seen on 09/18/19. NOTE Discussed wrist immobilization and non-weight bearing with Dr. Wilkins (orthopedics). He agrees these restrictions may be removed and patient encouraged to rehab. Nursing to remove UG splint and place a light angela bandage so pt is cognizant of her wrist injury when moving about independently. Otherwise, PT/OT may eval and treat her to strengthen the wrist and for balance and coordination. VS,Fishbone, I+O VS, Fishbone, I+O Vital Signs Date Time Temp Pulse Resp B/P (MAP) Pulse Ox O2 Delivery O2 Flow Rate FiO2 09/18/19 14:00 98.9 72 19 126/62 (83) 95 Room Air I&O- Last 24 Hours up to 6 AM 09/18/19 06:00 Intake Total 840 ml Output Total 0 ml Balance 840 ml THO PAUL PA-C Sep 18, 2019 15:00
[2019-09-18 20:00] VITALS: BP 114/56
[2019-09-18] MEDS: SENNA 8.6 MG TAB (SENOKOT) PO SCH (20:35)
[2019-09-18] MEDS: PROPRANOLOL 60 MG LA CAP PO SCH (20:36)
[2019-09-19 06:00] VITALS: BP 150/67
[2019-09-19 07:24] LABS: HEMATOCRIT 34.2 % (36.0-47.0); HEMOGLOBIN 10.6 g/dl (12.0-15.5); MEAN CORPUSCULAR HEMOGLOBIN 28.4 pg (27.0-33.0); MEAN CORPUSCULAR VOLUME 91.7 fl (80.0-96.0); PLATELET COUNT, AUTOMATED 352 10^3/uL (150-450); RED BLOOD COUNT 3.73 10^6/uL (4.00-5.40); WHITE BLOOD COUNT 6.7 10^3/uL (4.0-10.0)
[2019-09-19] MEDS: PANTOPRAZOLE 40MG TAB (PROTONIX) PO SCH (09:05)
[2019-09-19] MEDS: ACETAMINOPHEN 500 MG TAB PO SCH ×3 (09:05→20:36)
[2019-09-19] MEDS: DOCUSATE SODIUM 100 MG CAP PO SCH ×2 (09:05→20:36)
[2019-09-19] MEDS: BRINZOLAMIDE 1 % OPHTH SUSP (AZOPT) 10ML OU SCH ×2 (09:06→20:36)
[2019-09-19] MEDS: FUROSEMIDE 20 MG TAB PO SCH (09:06)
[2019-09-19] MEDS: haloperidoL 1 MG TAB PO SCH ×2 (09:06→20:36)
[2019-09-19] MEDS: ESCITALOPRAM OXALATE 5MG TABLET (LEXAPRO) PO SCH (09:06)
[2019-09-19] MEDS: ENOXAPARIN 30 MG/0.3 ML SYR (J1650) SC SCH (09:06)
[2019-09-19] MEDS: LOSARTAN 50 MG TAB PO SCH (09:06)
[2019-09-19 14:00] VITALS: BP 90/53
[2019-09-19 20:00] VITALS: BP 116/58
[2019-09-19] MEDS: PROPRANOLOL 60 MG LA CAP PO SCH (20:35)
[2019-09-19] MEDS: SENNA 8.6 MG TAB (SENOKOT) PO SCH (20:35)
[2019-09-20 06:00] VITALS: BP 115/56
[2019-09-20] MEDS: BRINZOLAMIDE 1 % OPHTH SUSP (AZOPT) 10ML OU SCH ×2 (07:57→21:46)
[2019-09-20] MEDS: ENOXAPARIN 30 MG/0.3 ML SYR (J1650) SC SCH (07:58)
[2019-09-20] MEDS: PANTOPRAZOLE 40MG TAB (PROTONIX) PO SCH (07:58)
[2019-09-20] MEDS: DOCUSATE SODIUM 100 MG CAP PO SCH ×2 (07:58→21:00)
[2019-09-20] MEDS: ESCITALOPRAM OXALATE 5MG TABLET (LEXAPRO) PO SCH (07:58)
[2019-09-20] MEDS: haloperidoL 1 MG TAB PO SCH ×2 (07:59→21:44)
[2019-09-20] MEDS: LOSARTAN 50 MG TAB PO SCH (07:59)
[2019-09-20] MEDS: FUROSEMIDE 20 MG TAB PO SCH (07:59)
[2019-09-20] MEDS: ACETAMINOPHEN 500 MG TAB PO SCH ×3 (09:08→21:45)
--- NOTE | 2019-09-20 11:23 | IPNPDOC ---
PM&R Progress Note DATE OF SERVICE: Sep 15, 2019 Restaurant Busser Progress Note Subjective: Patient reporting she feels well today and denies having pain in her hand, and reports mild pain in her pelvis. REVIEW OF SYSTEMS: The following is a completed review of systems and has been reviewed. Review of systems otherwise unremarkable. PAIN: Patient self reports right pelvic pain EYES: No recent vision changes EARS, NOSE, & THROAT: No throat pain, or dysphagia, or rhinorrhea CARDIOVASCULAR: Denies chest pain or palpitations PULMONARY: Denies shortness of breath GASTROINTESTINAL: Denies constipation/diarrhea GENITOURINARY: denies dysuria MUSCULOSKELETAL: right pelvic and MCP fractures NEUROLOGICAL:no focal tremor or paresthesias HEMATOLOGICAL: denies easy bruising SKIN: denies easy bruising PSYCHIATRIC: Unremarkable All other review of systems found to be negative. PHYSICAL EXAMINATION: VITAL SIGNS: Please see below. GENERAL: Pleasant and cooperative. No acute distress. thin HEENT: PERRL. Extraocular movements intact. Clear conjunctiva CARDIOVASCULAR: Regular rate and rhythm. No murmurs, rubs, or gallops LUNGS: Clear to auscultation bilaterally. No wheezes. No rhonchi ABDOMEN: Soft, nontender, nondistended. Positive bowel sounds. Normal active bowel sounds NEUROLOGICAL: Alert and oriented to self and place, Cranial nerves II through XII grossly intact. Sensation grossly intact in al 4 limbs EXTREMITIES: 5\5 strength LUE, 5/5 right elbow flexors and extensors, customer service clerk >3/5 (limited due to splinting) 4\5 strength right hip flexion, knee extension, 5/5 ankle DF and EHL/PF (limited due to pain) SKIN: intact ASSESSMENT:89-year-old F with past medical history of dementia who presents status post fall with right 5th MC-shaft fracture and pelvic fractures PLAN: 1. Rehab- PT- advance gait training, NW to RUE, ok to bear weight through elbow- fall recovery, dynamic balance training -OT- optimize ADL management with NWB to RUE 2. Neuro: hx of dementia- monitor for delirium -c/u haldol 3. Cardiac: hx of HTN c/u losartan, propranolol, and lasix- medicine consulted to assist in management 4. Resp: encourage incentive spirometry, monitor for infection 5. : monitor PVRs 6. GI ppx: protonix 7. DVT ppx: Lovenox and TEDs 8. Pain: tylenol and tramadol prn 9. Psych: anxiety- c/u lexapro 10. Ortho: s/p pelvic fractures WBAT and right 5th MC-shaft fracture- ortho consulted 10. Dispo: TBD Allergies Coded Allergies: Aminoglycosides (Verified Allergy, Intermediate, RASH, 09/10/19) rash bacitracin (Verified Allergy, Intermediate, RASH, 09/10/19) neomycin (Verified Allergy, Intermediate, RASH, 09/10/19) polymyxin B (Verified Allergy, Intermediate, RASH, 09/10/19) Penicillins (Verified Adverse Reaction, Mild, GI UPSET, 09/10/19) clavulanic acid (Verified Adverse Reaction, Mild, GI UPSET, 09/10/19) Vital Signs Vital Signs Date Time Temp Pulse Resp B/P (MAP) Pulse Ox O2 Delivery O2 Flow Rate FiO2 09/20/19 07:59 115/56 09/20/19 06:00 98.8 67 18 96 Room Air Current Medications Current Medications Current Medications Medications (Trade) Dose Ordered Sig/Jenniffer Route PRN Reason Start Time Stop Time Status Last Admin Dose Admin Acetaminophen (Tylenol Tab) 1,000 mg TID PO 09/13/19 21:00 09/20/19 09:08 Brinzolamide (Azopt) 1 drop BID OU 09/13/19 21:00 09/20/19 07:57 Docusate Sodium (Colace) 100 mg BID PO 09/13/19 21:00 09/20/19 07:58 Enoxaparin Sodium (Lovenox) 30 mg DAILY SC 09/14/19 09:00 09/20/19 07:58 Escitalopram Oxalate (Lexapro) 5 mg DAILY PO 09/14/19 09:00 09/20/19 07:58 Furosemide (Lasix) 20 mg DAILY PO 09/14/19 09:00 09/20/19 07:59 Haloperidol (Haldol) 1 mg BID PO 09/13/19 21:00 09/20/19 07:59 Losartan Potassium (Cozaar) 100 mg DAILY PO 09/14/19 09:00 09/20/19 07:59 Magnesium Hydroxide (Milk Of Magnesia) 30 ml DAILYPRN PRN PO CONSTIPATION 09/13/19 17:30 Pantoprazole Sodium (Protonix) 40 mg DAILY PO 09/14/19 09:00 09/20/19 07:58 Propranolol HCl (Inderal La) 60 mg QHS PO 09/13/19 21:00 09/19/19 20:35 Senna (Senokot) 1 tab QHS PO 09/13/19 21:00 09/19/19 20:35 Tramadol HCl (Ultram) 25 mg Q4HP PRN PO MODERATE PAIN (PS 5-7) 09/13/19 17:30 MIRIAN GREENFIELD MD Sep 20, 2019 11:23
--- NOTE | 2019-09-20 11:25 | IPNPDOC ---
PM&R Progress Note DATE OF SERVICE: Sep 20, 2019 Thread Dresser Progress Note Subjective: Patient reporting she is able to move her hand more and put weight through it now that her splint has been removed. She feels well overall. REVIEW OF SYSTEMS: The following is a completed review of systems and has been reviewed. Review of systems otherwise unremarkable. PAIN: Patient self reports right pelvic pain EYES: No recent vision changes EARS, NOSE, & THROAT: No throat pain, or dysphagia, or rhinorrhea CARDIOVASCULAR: Denies chest pain or palpitations PULMONARY: Denies shortness of breath GASTROINTESTINAL: Denies constipation/diarrhea GENITOURINARY: denies dysuria MUSCULOSKELETAL: right pelvic and MCP fractures NEUROLOGICAL:no focal tremor or paresthesias HEMATOLOGICAL: denies easy bruising SKIN: denies easy bruising PSYCHIATRIC: Unremarkable All other review of systems found to be negative. PHYSICAL EXAMINATION: VITAL SIGNS: Please see below. GENERAL: Pleasant and cooperative. No acute distress. thin HEENT: PERRL. Extraocular movements intact. Clear conjunctiva CARDIOVASCULAR: Regular rate and rhythm. No murmurs, rubs, or gallops LUNGS: Clear to auscultation bilaterally. No wheezes. No rhonchi ABDOMEN: Soft, nontender, nondistended. Positive bowel sounds. Normal active bowel sounds NEUROLOGICAL: Alert and oriented to self and place, Cranial nerves II through XII grossly intact. Sensation grossly intact in al 4 limbs EXTREMITIES: 5\5 strength LUE, 5/5 right elbow flexors and extensors, wheel aligner >4/5, 4\5 strength right hip flexion, knee extension, 5/5 ankle DF and EHL/PF (limited due to pain) SKIN: intact ASSESSMENT:89-year-old F with past medical history of dementia who presents status post fall with right 5th MC-shaft fracture and pelvic fractures PLAN: 1. Rehab- PT- advance gait training, fall recovery, dynamic balance training -OT- optimize ADL management, WB advanced to WBAT through right hand, ok to use walker 2. Neuro: hx of dementia- monitor for delirium -c/u haldol 3. Cardiac: hx of HTN c/u losartan, propranolol, and lasix- medicine consulted to assist in management 4. Resp: encourage incentive spirometry, monitor for infection 5. : monitor PVRs 6. GI ppx: protonix 7. DVT ppx: Lovenox and TEDs 8. Pain: tylenol and tramadol prn 9. Psych: anxiety- c/u lexapro 10. Ortho: s/p pelvic fractures WBAT and right 5th MC-shaft fracture-s/p splint removal, able to WBAT to right hand - ortho recs appreciated 10. Dispo: TBD Allergies Coded Allergies: Aminoglycosides (Verified Allergy, Intermediate, RASH, 09/10/19) rash bacitracin (Verified Allergy, Intermediate, RASH, 09/10/19) neomycin (Verified Allergy, Intermediate, RASH, 09/10/19) polymyxin B (Verified Allergy, Intermediate, RASH, 09/10/19) Penicillins (Verified Adverse Reaction, Mild, GI UPSET, 09/10/19) clavulanic acid (Verified Adverse Reaction, Mild, GI UPSET, 09/10/19) Vital Signs Vital Signs Date Time Temp Pulse Resp B/P (MAP) Pulse Ox O2 Delivery O2 Flow Rate FiO2 09/20/19 07:59 115/56 09/20/19 06:00 98.8 67 18 96 Room Air Current Medications Current Medications Current Medications Medications (Trade) Dose Ordered Sig/Jenniffer Route PRN Reason Start Time Stop Time Status Last Admin Dose Admin Acetaminophen (Tylenol Tab) 1,000 mg TID PO 09/13/19 21:00 09/20/19 09:08 Brinzolamide (Azopt) 1 drop BID OU 09/13/19 21:00 09/20/19 07:57 Docusate Sodium (Colace) 100 mg BID PO 09/13/19 21:00 09/20/19 07:58 Enoxaparin Sodium (Lovenox) 30 mg DAILY SC 09/14/19 09:00 09/20/19 07:58 Escitalopram Oxalate (Lexapro) 5 mg DAILY PO 09/14/19 09:00 09/20/19 07:58 Furosemide (Lasix) 20 mg DAILY PO 09/14/19 09:00 09/20/19 07:59 Haloperidol (Haldol) 1 mg BID PO 09/13/19 21:00 09/20/19 07:59 Losartan Potassium (Cozaar) 100 mg DAILY PO 09/14/19 09:00 09/20/19 07:59 Magnesium Hydroxide (Milk Of Magnesia) 30 ml DAILYPRN PRN PO CONSTIPATION 09/13/19 17:30 Pantoprazole Sodium (Protonix) 40 mg DAILY PO 09/14/19 09:00 09/20/19 07:58 Propranolol HCl (Inderal La) 60 mg QHS PO 09/13/19 21:00 09/19/19 20:35 Senna (Senokot) 1 tab QHS PO 09/13/19 21:00 09/19/19 20:35 Tramadol HCl (Ultram) 25 mg Q4HP PRN PO MODERATE PAIN (PS 5-7) 09/13/19 17:30 MIRIAN GREENFIELD MD Sep 20, 2019 11:25
[2019-09-20 14:00] VITALS: BP 124/59
[2019-09-20 20:00] VITALS: BP 103/50
[2019-09-20] MEDS: PROPRANOLOL 60 MG LA CAP PO SCH (21:00)
[2019-09-20] MEDS: SENNA 8.6 MG TAB (SENOKOT) PO SCH (21:00)
[2019-09-21 06:00] VITALS: BP 116/58
[2019-09-21] MEDS: DOCUSATE SODIUM 100 MG CAP PO SCH ×3 (08:55→20:22)
[2019-09-21] MEDS: haloperidoL 1 MG TAB PO SCH ×2 (08:55→20:22)
[2019-09-21] MEDS: LOSARTAN 50 MG TAB PO SCH (08:56)
[2019-09-21] MEDS: PANTOPRAZOLE 40MG TAB (PROTONIX) PO SCH (08:56)
[2019-09-21] MEDS: BRINZOLAMIDE 1 % OPHTH SUSP (AZOPT) 10ML OU SCH ×2 (08:56→20:23)
[2019-09-21] MEDS: ACETAMINOPHEN 500 MG TAB PO SCH ×3 (08:56→20:23)
[2019-09-21] MEDS: ENOXAPARIN 30 MG/0.3 ML SYR (J1650) SC SCH (08:56)
[2019-09-21] MEDS: FUROSEMIDE 20 MG TAB PO SCH (08:56)
[2019-09-21] MEDS: ESCITALOPRAM OXALATE 5MG TABLET (LEXAPRO) PO SCH (09:00)
[2019-09-21 14:00] VITALS: BP 125/60
--- NOTE | 2019-09-21 16:05 | IPNPDOC ---
PM&R Progress Note DATE OF SERVICE: Sep 21, 2019 Belt Measurer Progress Note Subjective: Patient reporting her mouth is dry, but other than that she feels fine. She thinks she will be ready to return to assisted living next week. REVIEW OF SYSTEMS: The following is a completed review of systems and has been reviewed. Review of systems otherwise unremarkable. PAIN: Patient self reports right pelvic pain EYES: No recent vision changes EARS, NOSE, & THROAT: No throat pain, or dysphagia, or rhinorrhea CARDIOVASCULAR: Denies chest pain or palpitations PULMONARY: Denies shortness of breath GASTROINTESTINAL: Denies constipation/diarrhea GENITOURINARY: denies dysuria MUSCULOSKELETAL: right pelvic and MCP fractures NEUROLOGICAL:no focal tremor or paresthesias HEMATOLOGICAL: denies easy bruising SKIN: denies easy bruising PSYCHIATRIC: Unremarkable All other review of systems found to be negative. PHYSICAL EXAMINATION: VITAL SIGNS: Please see below. GENERAL: Pleasant and cooperative. No acute distress. thin HEENT: PERRL. Extraocular movements intact. Clear conjunctiva CARDIOVASCULAR: Regular rate and rhythm. No murmurs, rubs, or gallops LUNGS: Clear to auscultation bilaterally. No wheezes. No rhonchi ABDOMEN: Soft, nontender, nondistended. Positive bowel sounds. Normal active bowel sounds NEUROLOGICAL: Alert and oriented to self and place, Cranial nerves II through XII grossly intact. Sensation grossly intact in al 4 limbs EXTREMITIES: 5\5 strength LUE, 5/5 right elbow flexors and extensors, ad operations coordinator >4/5, 4\5 strength right hip flexion, knee extension, 5/5 ankle DF and EHL/PF (limited due to pain) SKIN: intact ASSESSMENT:89-year-old F with past medical history of dementia who presents status post fall with right 5th MC-shaft fracture and pelvic fractures PLAN: 1. Rehab- PT- advance gait training, fall recovery, dynamic balance training, ambulating well -OT- optimize ADL management, WB advanced to WBAT through right hand, ok to use walker 2. Neuro: hx of dementia- monitor for delirium -c/u haldol 3. Cardiac: hx of HTN c/u losartan, propranolol, and lasix- medicine consulted to assist in management 4. Resp: encourage incentive spirometry, monitor for infection 5. : monitor PVRs 6. GI ppx: protonix 7. DVT ppx: Lovenox and TEDs 8. Pain: tylenol and tramadol prn 9. Psych: anxiety- c/u lexapro 10. Ortho: s/p pelvic fractures WBAT and right 5th MC-shaft fracture-s/p splint removal, able to WBAT to right hand - ortho recs appreciated 10. Dispo: 09-25-19 to home, progressing towards goals Allergies Coded Allergies: Aminoglycosides (Verified Allergy, Intermediate, RASH, 09/10/19) rash bacitracin (Verified Allergy, Intermediate, RASH, 09/10/19) neomycin (Verified Allergy, Intermediate, RASH, 09/10/19) polymyxin B (Verified Allergy, Intermediate, RASH, 09/10/19) Penicillins (Verified Adverse Reaction, Mild, GI UPSET, 09/10/19) clavulanic acid (Verified Adverse Reaction, Mild, GI UPSET, 09/10/19) Vital Signs Vital Signs Date Time Temp Pulse Resp B/P (MAP) Pulse Ox O2 Delivery O2 Flow Rate FiO2 09/21/19 14:00 97.4 67 18 125/60 (81) 99 Room Air Current Medications Current Medications Current Medications Medications (Trade) Dose Ordered Sig/Jenniffer Route PRN Reason Start Time Stop Time Status Last Admin Dose Admin Acetaminophen (Tylenol Tab) 1,000 mg TID PO 09/13/19 21:00 09/21/19 08:56 Brinzolamide (Azopt) 1 drop BID OU 09/13/19 21:00 09/21/19 08:56 Docusate Sodium (Colace) 100 mg BID PO 09/13/19 21:00 09/20/19 07:58 Enoxaparin Sodium (Lovenox) 30 mg DAILY SC 09/14/19 09:00 09/21/19 08:56 Escitalopram Oxalate (Lexapro) 5 mg DAILY PO 09/14/19 09:00 09/21/19 09:00 Furosemide (Lasix) 20 mg DAILY PO 09/14/19 09:00 09/21/19 08:56 Haloperidol (Haldol) 1 mg BID PO 09/13/19 21:00 09/21/19 08:55 Losartan Potassium (Cozaar) 100 mg DAILY PO 09/14/19 09:00 09/21/19 08:56 Magnesium Hydroxide (Milk Of Magnesia) 30 ml DAILYPRN PRN PO CONSTIPATION 09/13/19 17:30 Pantoprazole Sodium (Protonix) 40 mg DAILY PO 09/14/19 09:00 09/21/19 08:56 Propranolol HCl (Inderal La) 60 mg QHS PO 09/13/19 21:00 09/19/19 20:35 Saliva Substitute (Mouthkote) 2 sprays QID MT 09/21/19 17:00 Senna (Senokot) 1 tab QHS PO 09/13/19 21:00 09/19/19 20:35 Tramadol HCl (Ultram) 25 mg Q4HP PRN PO MODERATE PAIN (PS 5-7) 09/13/19 17:30 MIRIAN GREENFIELD MD Sep 21, 2019 16:05
[2019-09-21] MEDS: SALIVA SUBSTITUTE(MOUTHKOTE) BTL MT SCH ×2 (17:18→20:23)
[2019-09-21 20:15] VITALS: BP 108/58
[2019-09-21] MEDS: PROPRANOLOL 60 MG LA CAP PO SCH (20:15)
[2019-09-21] MEDS: SENNA 8.6 MG TAB (SENOKOT) PO SCH (20:23)
[2019-09-22 06:00] VITALS: BP 111/57
[2019-09-22 06:44] LABS: HEMOGLOBIN 9.9 g/dl (12.0-15.5); MEAN CORPUSCULAR HEMOGLOBIN 29.2 pg (27.0-33.0); MEAN CORPUSCULAR HGB CONC 31.9 g/dl (32.0-36.5); MEAN CORPUSCULAR VOLUME 91.4 fl (80.0-96.0); PLATELET COUNT, AUTOMATED 345 10^3/uL (150-450); RED BLOOD COUNT 3.39 10^6/uL (4.00-5.40); WHITE BLOOD COUNT 5.7 10^3/uL (4.0-10.0)
[2019-09-22 07:05] LABS: CALCIUM LEVEL 8.7 MG/DL (8.8-10.2); CREATININE FOR GFR 1.11 MG/DL (0.55-1.30); GLOMERULAR FILTRATION RATE 49.5 (>32); POTASSIUM SERUM 5.2 MEQ/L (3.5-5.1)
[2019-09-22] MEDS: DOCUSATE SODIUM 100 MG CAP PO SCH ×2 (08:38→20:44)
[2019-09-22] MEDS: LOSARTAN 50 MG TAB PO SCH (08:39)
[2019-09-22] MEDS: ACETAMINOPHEN 500 MG TAB PO SCH ×3 (08:41→20:44)
[2019-09-22] MEDS: ENOXAPARIN 30 MG/0.3 ML SYR (J1650) SC SCH (08:41)
[2019-09-22] MEDS: PANTOPRAZOLE 40MG TAB (PROTONIX) PO SCH (08:41)
[2019-09-22] MEDS: FUROSEMIDE 20 MG TAB PO SCH (08:42)
[2019-09-22] MEDS: SALIVA SUBSTITUTE(MOUTHKOTE) BTL MT SCH ×4 (08:42→20:44)
[2019-09-22] MEDS: haloperidoL 1 MG TAB PO SCH ×2 (08:42→20:44)
[2019-09-22] MEDS: BRINZOLAMIDE 1 % OPHTH SUSP (AZOPT) 10ML OU SCH ×2 (08:42→20:45)
[2019-09-22] MEDS: ESCITALOPRAM OXALATE 5MG TABLET (LEXAPRO) PO SCH (08:42)
[2019-09-22 14:00] VITALS: BP 120/54
[2019-09-22 20:25] VITALS: BP 131/58
[2019-09-22] MEDS: SENNA 8.6 MG TAB (SENOKOT) PO SCH (20:44)
[2019-09-22] MEDS: PROPRANOLOL 60 MG LA CAP PO SCH (20:44)
[2019-09-23 06:21] VITALS: BP 124/59
[2019-09-23] MEDS: DOCUSATE SODIUM 100 MG CAP PO SCH ×2 (09:37→20:07)
[2019-09-23] MEDS: ENOXAPARIN 30 MG/0.3 ML SYR (J1650) SC SCH (09:37)
[2019-09-23] MEDS: FUROSEMIDE 20 MG TAB PO SCH (09:37)
[2019-09-23] MEDS: ESCITALOPRAM OXALATE 5MG TABLET (LEXAPRO) PO SCH (09:38)
[2019-09-23] MEDS: PANTOPRAZOLE 40MG TAB (PROTONIX) PO SCH (09:38)
[2019-09-23] MEDS: ACETAMINOPHEN 500 MG TAB PO SCH ×3 (09:38→20:07)
[2019-09-23] MEDS: haloperidoL 1 MG TAB PO SCH ×2 (09:38→20:07)
[2019-09-23] MEDS: BRINZOLAMIDE 1 % OPHTH SUSP (AZOPT) 10ML OU SCH ×2 (09:39→20:07)
[2019-09-23] MEDS: LOSARTAN 50 MG TAB PO SCH (09:39)
[2019-09-23] MEDS: SALIVA SUBSTITUTE(MOUTHKOTE) BTL MT SCH ×4 (09:39→20:07)
[2019-09-23 14:00] VITALS: BP 108/53
[2019-09-23 20:00] VITALS: BP 131/60
[2019-09-23] MEDS: SENNA 8.6 MG TAB (SENOKOT) PO SCH (20:07)
[2019-09-23] MEDS: PROPRANOLOL 60 MG LA CAP PO SCH (20:13)
[2019-09-24 06:00] VITALS: BP 141/67
[2019-09-24] MEDS: PANTOPRAZOLE 40MG TAB (PROTONIX) PO SCH (08:49)
[2019-09-24] MEDS: ACETAMINOPHEN 500 MG TAB PO SCH ×3 (08:49→21:30)
[2019-09-24] MEDS: FUROSEMIDE 20 MG TAB PO SCH (08:49)
[2019-09-24] MEDS: ENOXAPARIN 30 MG/0.3 ML SYR (J1650) SC SCH (08:50)
[2019-09-24] MEDS: DOCUSATE SODIUM 100 MG CAP PO SCH ×2 (08:50→21:30)
[2019-09-24] MEDS: haloperidoL 1 MG TAB PO SCH ×2 (08:50→21:33)
[2019-09-24] MEDS: LOSARTAN 50 MG TAB PO SCH (08:50)
[2019-09-24] MEDS: SALIVA SUBSTITUTE(MOUTHKOTE) BTL MT SCH ×4 (08:52→21:33)
[2019-09-24] MEDS: BRINZOLAMIDE 1 % OPHTH SUSP (AZOPT) 10ML OU SCH ×2 (08:52→21:33)
[2019-09-24] MEDS: ESCITALOPRAM OXALATE 5MG TABLET (LEXAPRO) PO SCH (09:00)
[2019-09-24 10:19] LABS: HEMATOCRIT 32.3 % (36.0-47.0); HEMOGLOBIN 10.3 g/dl (12.0-15.5); MEAN CORPUSCULAR HEMOGLOBIN 29.7 pg (27.0-33.0); MEAN CORPUSCULAR HGB CONC 31.9 g/dl (32.0-36.5); MEAN CORPUSCULAR VOLUME 93.1 fl (80.0-96.0); PLATELET COUNT, AUTOMATED 362 10^3/uL (150-450); RED BLOOD COUNT 3.47 10^6/uL (4.00-5.40); WHITE BLOOD COUNT 6.4 10^3/uL (4.0-10.0)
[2019-09-24 10:43] LABS: CALCIUM LEVEL 8.6 MG/DL (8.8-10.2); CREATININE FOR GFR 1.06 MG/DL (0.55-1.30); GLOMERULAR FILTRATION RATE 52.2 (>32); POTASSIUM SERUM 4.6 MEQ/L (3.5-5.1)
--- NOTE | 2019-09-24 12:55 | IPNPDOC ---
PM&R Progress Note DATE OF SERVICE: Sep 24, 2019 Tmr Teacher Progress Note Subjective: Patient reporting she is apprehensive about leaving tomorrow because she knows there will be a lot of paperwork. She was reassured that all paperwork would be handled by staff and to just focus on doing her home exercises. REVIEW OF SYSTEMS: The following is a completed review of systems and has been reviewed. Review of systems otherwise unremarkable. PAIN: Patient self reports right pelvic pain EYES: No recent vision changes EARS, NOSE, & THROAT: No throat pain, or dysphagia, or rhinorrhea CARDIOVASCULAR: Denies chest pain or palpitations PULMONARY: Denies shortness of breath GASTROINTESTINAL: Denies constipation/diarrhea GENITOURINARY: denies dysuria MUSCULOSKELETAL: right pelvic and MCP fractures NEUROLOGICAL:no focal tremor or paresthesias HEMATOLOGICAL: denies easy bruising SKIN: denies easy bruising PSYCHIATRIC: Unremarkable All other review of systems found to be negative. PHYSICAL EXAMINATION: VITAL SIGNS: Please see below. GENERAL: Pleasant and cooperative. No acute distress. thin HEENT: PERRL. Extraocular movements intact. Clear conjunctiva CARDIOVASCULAR: Regular rate and rhythm. No murmurs, rubs, or gallops LUNGS: Clear to auscultation bilaterally. No wheezes. No rhonchi ABDOMEN: Soft, nontender, nondistended. Positive bowel sounds. Normal active bowel sounds NEUROLOGICAL: Alert and oriented to self and place, Cranial nerves II through XII grossly intact. Sensation grossly intact in al 4 limbs EXTREMITIES: 5\5 strength LUE, 5/5 right elbow flexors and extensors, glaze wiper >4/5, 4\5 strength right hip flexion, knee extension, 5/5 ankle DF and EHL/PF (limited due to pain) SKIN: intact ASSESSMENT:89-year-old F with past medical history of dementia who presents status post fall with right 5th MC-shaft fracture and pelvic fractures PLAN: 1. Rehab- PT- advance gait training, fall recovery, dynamic balance training, ambulating well -OT- optimize ADL management, WB advanced to WBAT through right hand, ok to use walker 2. Neuro: hx of dementia- monitor for delirium -c/u haldol 3. Cardiac: hx of HTN c/u losartan, propranolol, and lasix- medicine consulted to assist in management 4. Resp: encourage incentive spirometry, monitor for infection 5. : monitor PVRs 6. GI ppx: protonix 7. DVT ppx: Lovenox and TEDs 8. Pain: tylenol and tramadol prn 9. Psych: anxiety- c/u lexapro 10. Ortho: s/p pelvic fractures WBAT and right 5th MC-shaft fracture-s/p splint removal, able to WBAT to right hand - ortho recs appreciated 11. Hyperkalemia- resolved without specific intervention 12. Dispo: 09-25-19 to home, progressing towards goals Allergies Coded Allergies: Aminoglycosides (Verified Allergy, Intermediate, RASH, 09/10/19) rash bacitracin (Verified Allergy, Intermediate, RASH, 09/10/19) neomycin (Verified Allergy, Intermediate, RASH, 09/10/19) polymyxin B (Verified Allergy, Intermediate, RASH, 09/10/19) Penicillins (Verified Adverse Reaction, Mild, GI UPSET, 09/10/19) clavulanic acid (Verified Adverse Reaction, Mild, GI UPSET, 09/10/19) Vital Signs Vital Signs Date Time Temp Pulse Resp B/P (MAP) Pulse Ox O2 Delivery O2 Flow Rate FiO2 09/24/19 08:50 141/67 09/24/19 06:00 97.6 62 19 95 Room Air Laboratory Data CBC/BMP Laboratory Tests 09/24/19 09:59 Labs 24H Laboratory Tests 2 09/24/19 09:59: Nucleated Red Blood Cells % (auto) 0.0, Anion Gap 7L, Glomerular Filtration Rate 52.2, Calcium Level 8.6L Current Medications Current Medications Current Medications Medications (Trade) Dose Ordered Sig/Jenniffer Route PRN Reason Start Time Stop Time Status Last Admin Dose Admin Acetaminophen (Tylenol Tab) 1,000 mg TID PO 09/13/19 21:00 09/24/19 08:49 Brinzolamide (Azopt) 1 drop BID OU 09/13/19 21:00 09/24/19 08:52 Docusate Sodium (Colace) 100 mg BID PO 09/13/19 21:00 09/24/19 08:50 Enoxaparin Sodium (Lovenox) 30 mg DAILY SC 09/14/19 09:00 09/24/19 08:50 Escitalopram Oxalate (Lexapro) 5 mg DAILY PO 09/14/19 09:00 09/24/19 09:00 Furosemide (Lasix) 20 mg DAILY PO 09/14/19 09:00 09/24/19 08:49 Haloperidol (Haldol) 1 mg BID PO 09/13/19 21:00 09/24/19 08:50 Losartan Potassium (Cozaar) 100 mg DAILY PO 09/14/19 09:00 09/24/19 08:50 Magnesium Hydroxide (Milk Of Magnesia) 30 ml DAILYPRN PRN PO CONSTIPATION 09/13/19 17:30 Pantoprazole Sodium (Protonix) 40 mg DAILY PO 09/14/19 09:00 09/24/19 08:49 Propranolol HCl (Inderal La) 60 mg QHS PO 09/13/19 21:00 09/23/19 20:13 Saliva Substitute (Mouthkote) 2 sprays QID MT 09/21/19 17:00 09/24/19 12:08 Senna (Senokot) 1 tab QHS PO 09/13/19 21:00 09/23/19 20:07 Tramadol HCl (Ultram) 25 mg Q4HP PRN PO MODERATE PAIN (PS 5-7) 09/13/19 17:30 MIRIAN GREENFIELD MD Sep 24, 2019 12:55
[2019-09-24 14:00] VITALS: BP 141/60
[2019-09-24 20:00] VITALS: BP 129/68
[2019-09-24] MEDS: PROPRANOLOL 60 MG LA CAP PO SCH (21:33)
[2019-09-24] MEDS: SENNA 8.6 MG TAB (SENOKOT) PO SCH (21:33)
[2019-09-25 06:00] VITALS: BP 131/62
[2019-09-25] MEDS: BRINZOLAMIDE 1 % OPHTH SUSP (AZOPT) 10ML OU SCH (08:28)
[2019-09-25] MEDS: PANTOPRAZOLE 40MG TAB (PROTONIX) PO SCH (08:28)
[2019-09-25 08:29] VITALS: BP 131/62
[2019-09-25] MEDS: SALIVA SUBSTITUTE(MOUTHKOTE) BTL MT SCH (08:29)
[2019-09-25] MEDS: LOSARTAN 50 MG TAB PO SCH (08:29)
[2019-09-25] MEDS: DOCUSATE SODIUM 100 MG CAP PO SCH (08:29)
[2019-09-25] MEDS: ACETAMINOPHEN 500 MG TAB PO SCH (08:29)
[2019-09-25] MEDS: haloperidoL 1 MG TAB PO SCH (08:30)
[2019-09-25] MEDS: ENOXAPARIN 30 MG/0.3 ML SYR (J1650) SC SCH (08:30)
[2019-09-25] MEDS: ESCITALOPRAM OXALATE 5MG TABLET (LEXAPRO) PO SCH (08:30)
[2019-09-25] MEDS: FUROSEMIDE 20 MG TAB PO SCH (08:30)
[2019-09-25] MEDS ORDERED: SENN18TA PO (11:20)
[2019-09-25] MEDS ORDERED: COZA50TA PO (11:20)
[2019-09-25] MEDS ORDERED: INDE60CA4 PO (11:20)
[2019-09-25] MEDS ORDERED: FURO20TA2 PO (11:20)
[2019-09-25] MEDS ORDERED: DOCU100C16 PO (11:20)
[2019-09-25] MEDS ORDERED: ACET-683 PO (11:20)
[2019-09-25] MEDS ORDERED: LEXA5TAB13 PO (11:20)
[2019-09-25] MEDS ORDERED: HALO1TA PO (11:20)
[2019-09-25] MEDS ORDERED: BRIN1OPH OU (11:20)
--- NOTE | 2019-09-25 12:16 | PMRDS ---
DATE OF ADMISSION: 09/13/2020 DATE OF DISCHARGE: CHIEF COMPLAINT/DISCHARGE DIAGNOSIS: Right pelvic and MC-shaft fracture. HISTORY OF PRESENT ILLNESS: 89-year-old female with a past medical history of dementia, hypertension, anxiety, cataract, who fell at home and presented to the emergency department (ED) on 09/10/2019 with right arm swelling and difficulty walking. Hip x-ray showed "nondisplaced fracture of the right superior pubic ramus and likely nondisplaced fracture of the right inferior pubic ramus" and hand x-ray revealed "transverse fractures of the fifth metacarpal shaft." She was evaluated by orthopedics who splinted her right hand and made her non-weightbearing for 3 weeks. For her pelvic fracture no surgery was recommended and instead she was encouraged to walk on it a weightbearing as tolerated. She was evaluated by therapy and noted to be well below her prior level of function and mobility in activities of daily living (ADL) and deemed medically appropriate for discharge to acute rehabilitation unit (ARU) on 09/13/2019. PAST MEDICAL HISTORY: As per history of present illness (HPI). HOSPITAL COURSE: The patient was admitted and enrolled in a comprehensive physical therapy (PT), occupational therapy (OT) program. She received 24 hour nursing supervision and weekly team meetings were held to discuss her progress. The patient was maintained on Haldol for her history of dementia with episodes of agitation, the patient did not present with any agitation during her hospital course. She was progressed from non-weightbearing to the right hand to weightbearing as tolerated with splint removal per orthopedics. Her pain was well controlled with Tylenol and the patient was hemodynamically stable without any signs of infection, made significant gains in therapy and was deemed medically and functionally stable to return to assisted living. DISCHARGE MEDICATIONS: As per instructions. FUNCTIONAL HISTORY: On discharge, the patient was modified independent for all functional transfers, able to ambulate 150 feet with a rolling walker and occupational therapy she was modified independent for bed mobility, upper and lower body dressing and toileting. Thank you for this referral.
--- NOTE | 2019-09-25 15:50 | IPNPDOC ---
Subjective Date Seen The patient was seen on 09/25/19. Subjective Chief Complaint/HPI Ms. Fitzpatrick is an 89 year old female admitted to the hospital with a diagnoses of Fall, Fx 5TH Metacarpal Right Hand,Fx Right Superior and inferior Pubic Rami. Pt is a poor historian due to dementia. Pt has been doing well while on ARU; she is seen today prior to her d/c. Pt reported she is doing much better - walking with her walker and denied any pain today. She is looking forward to her brother and possibly [id number] picking her up this morning. General: Reports: Normal Appetite; Denies: Chills, Night Sweats, Fatigue, Malaise Constitutional: Denies: Chills, Fever, Night Sweats Eyes: Denies: Pain ENT: Denies: Head Aches Skin: Denies: Rash Pulmonary: Denies: Dyspnea, Cough Cardiovascular: Denies: Chest Pain, Palpitations, Orthopnea, Paroxysmal Noc. Dyspnea, Edema, Lt Headedness Gastrointestinal: Denies: Nausea, Vomiting, Abdominal Pain Genitourinary: Denies: Dysuria, Frequency Musculoskeletal: Denies: Neck Pain, Back Pain, Joint Pain, Muscle Pain, Spasms Neurological: Denies: Weakness, Numbness Psych: Reports: Mood Normal Objective Physical Examination General Exam: Positive: Alert, Cooperative, No Acute Distress Eye Exam: Positive: PERRLA, Conjunctiva & lids normal ENT Exam: Positive: Atraumatic, Mucous membr. moist/pink, Pharynx Normal, Tongue Midline Neck Exam: Positive: Supple; Negative: thyromegaly Chest Exam: Positive: Clear to auscultation, Normal air movement Heart Exam: Positive: Rate Normal, Normal S1, Normal S2; Negative: Gallops, Rubs Abdomen Exam: Positive: Normal bowel sounds, Soft; Negative: Tenderness, Hepatospenomegaly Extremity Exam: Negative: Clubbing, Cyanosis, Edema Skin Exam: Positive: Nl turgor and temperature Neuro Exam: Positive: Normal Gait (walks well with her walker ), Normal Speech Psych Exam: Positive: Anxiety (slightly anxious which appears to be her baseline ) Assessment /Plan Assessment Ms. Fitzpatrick is seen in [facility] ED following a fall x 8 days prior. She is a poor historian due to dementia and her caregivers have already left. Pt has a PMHx of HTN, Anxiety, Osteoporosis, Cataracts. Pt reported she was heading to the communal room at her apt complex when she 'must have turned too quickly', possibly slipped and fell. She denied any head trauma or loss of consciousness. She stated she was helped off the floor and managed to continue with her day. Pt stated she never felt pain and in fact, never took even OTC medication for pain following her fall. She was noted to have some swelling over the R elbow and hand and appeared to be walking with a limp and was brought to the ED for assessment. CT Pelvis w/out contrast Impression: "Nondisplaced fractures involving the right superior and inferior pubic rami with subtle intramuscular contusion involving the adductor musculature adjacent to the right inferior pubic ramus." X-Ray Right elbow Impression: "Age-related osteopenia and degenerative changes. Bulky osteophyte in the region of the proximal anterior ulna presumed (less likely representing an acute fracture fragment." X-Ray Right hand Impression: "Transverse fracture through the fifth metacarpal shaft." X-Ray Right hip Impression: "Nondisplaced date pubic ramus fracture(s)." 1. Non-displaced fracture right superior and inferior pubic rami 2. Transverse fracture through the fifth metacarpal shaft - Ortho consulted (Dr. Wilkins). Admission recommended with PT/OT assessment - transferred to ARU 09/13/19; management and pain control per Dr. Hartman - pt to be d/c today to a NH closer to her brother and his 3. HTN - continue home medications; Cozaar, Inderal, Lasix - reports she has white coat HTN. 4. Cataracts - continue home medications 5. Anxiety - continue Lexapro 6. GERD - continue Pantoprazole 7. Hospital-induced psychosis - Haldol prescribed - now resolved Plan/VTE VTE Prophylaxis Ordered?: Yes (Lovenox ) VS, I&O, 24H, Fishbone Vital Signs/I&O Vital Signs Date Time Temp Pulse Resp B/P (MAP) Pulse Ox O2 Delivery O2 Flow Rate FiO2 09/25/19 08:29 131/62 09/25/19 06:00 97.2 54 18 99 Room Air I&O- Last 24 Hours up to 6 AM 09/25/19 06:00 Intake Total 820 ml Balance 820 ml THO PAUL PA-C Sep 25, 2019 15:50
== END 2019-09-25 12:15 | disposition home or self-care (01) | DRG 561 ==
LOC: M PM&R 17:35
PROVIDERS: ADMIT Physical Medicine & Rehabilitation; ATTEND Physical Medicine & Rehabilitation
DX: S32.511D Fracture of superior rim of right pubis, subsequent encounter for fracture with routine healing (principal); S62.326D Displaced fracture of shaft of fifth metacarpal bone, right hand, subsequent encounter for fracture with routine healing; Z79.899 Other long term (current) drug therapy; Z88.0 Allergy status to penicillin; Z88.1 Allergy status to other antibiotic agents; Z88.8 Allergy status to other drugs, medicaments and biological substances; W19.XXXD Unspecified fall, subsequent encounter; Y92.009 Unspecified place in unspecified non-institutional (private) residence as the place of occurrence of the external cause; F03.90 Unspecified dementia, unspecified severity, without behavioral disturbance, psychotic disturbance, mood disturbance, and anxiety; I10 Essential (primary) hypertension; F41.9 Anxiety disorder, unspecified; M81.0 Age-related osteoporosis without current pathological fracture